=== PATIENT | female | born 1965 | race Caucasian/White ===

== ENCOUNTER 2020-07-17 12:14 | Outpatient (CLI) | payer BC, SELFPAY ==
--- NOTE | ~2020-07-17 | MR_ITS ---
EXAMINATION: MR knee RT wo con DATE: 07/17/2020 13:18 INDICATION: Anterior and medial right knee pain TECHNIQUE: Magnetic resonance imaging (MRI) of the right knee was performed without intravenous contr ast. Sequences included coronal PD-weighted FSE, coronal PD-weighted FS FSE, sagittal T2-weighted FS E, sagittal PD-weighted FS FSE and axial PD weighted fat saturated FSE. COMPARISON: None. FINDINGS: Medial compartment: Mild medial extrusion of the medial meniscus with likely full-thickness radial tear near the posterio r root. Partial-thickness chondral ulceration with deep fissuring along the anterior weightbearing me dial femoral condyle and anterior aspect of the medial tibial plateau. There is marrow edema underlyi ng the medial rim of the medial tibial plateau where there is a small subarticular trabecular fractur e line which could be either due to discrete traumatic impaction fracture or a stress fracture result ing from altered stress distribution resulting from the meniscal tear. Lateral compartment: Lateral meniscus is normal. Deep chondral ulceration at the anterior weightbearing lateral femoral co ndyle with small region filled with approximately 5 mm diameter 2 mm thick central subchondral osteop hyte. Additional deep chondral fissuring at the central aspect of the lateral tibial plateau without degenerative subchondral changes. Patellofemoral compartment: Deep chondral ulceration and fissuring involving significant portions of the medial and lateral gupta lar facets and intervening apical ridge. Additional deep chondral ulceration at the lateral trochlea and at the trochlear groove with underlying cortical irregularity, couple small central subchondral o steophytes and mild subarticular edema. Deep chondral fissuring with minimal subarticular edema at th e medial trochlea with inferior predominance. Ligaments and tendons: Anterior and posterior cruciate ligaments are normal. Mild thickening and minimal increased signal at the proximal medial collateral ligament without surrounding edema consistent with mild scarring rela irineo to chronic sprain. The fibular collateral ligament is normal. Mild distal quadriceps tendinopathy with small enthesophytes at its patellar insertion. Additional mild tendinopathy at the proximal dis lindsay insertions of the patellar tendon. The visualized medial and lateral hamstring tendons as well as the iliotibial band are normal. Fluid: Moderate-sized right knee joint effusion. Small Alejandro's cyst. No loose osteochondral bodies identifie d. Osseous/other: Small subarticular fracture line underlying the medial rim of the medial tibial plateau as detailed a estefania. No other fractures or pathologic marrow replacing process. Bone island at the posterior weightb earing medial femoral condyle. IMPRESSION: 1. Full-thickness radial tear near the posterior root of the medial meniscus. 2. Small subarticular fracture line along the medial rim of the medial tibial plateau which could be related to a discrete impaction injury or stress fracture related to altered weight/stress distributi on resulting from the meniscal tear. 3. Moderate patellofemoral, mild to moderate medial and mild lateral compartment osteoarthritis with regions of high-grade chondromalacia in all 3 compartments. Mild scarring consistent with chronic spr ain of the proximal medial collateral ligament. 4. Mild enthesopathy at the osseous insertions of the patellar and quadriceps tendons. 5. Moderate-sized right knee joint effusion with small Alejandro's cyst. Reviewed, dictated and finalized at location A. A [employer]
== END 2020-07-17 12:15 | disposition home or self-care (01) ==
PROVIDERS: PCP Internal Medicine; Visit Provider Nurse Practitioner
DX: M17.11 Unilateral primary osteoarthritis, right knee (principal); M71.21 Synovial cyst of popliteal space [Baker], right knee
CPT/HCPCS: 73721

== ENCOUNTER 2020-08-10 07:47 | Outpatient (CLI) | payer BC, SELFPAY ==
--- NOTE | 2020-08-10 07:49 | ECG_ITS ---
Measurements Intervals [place] Rate: 81 P: 61 TN: 181 QRS: 57 QRSD: 134 T: 33 QT: 377 QTc: 440 Interpretive Statements SINUS RHYTHM RIGHT BUNDLE BRANCH BLOCK BASELINE ARTIFACT- I, II, III, AVR, AVL, AVF ABNORMAL ECG Electronically Signed On 08-10-2020 8:10:03 GUIDANCE CONSULTANT by Jp Wolf D.O.
[2020-08-10 08:37] LABS: Anion Gap 8 mmol/L (8-16); Blood Urea Nitrogen 11 mg/dL (7-17); Calcium 9.2 mg/dL (8.4-10.2); Carbon Dioxide 33 mmol/L (22-30); Chloride 99 mmol/L (98-107); Estimated Glomerular Filt Rate > 60; Glucose 104 mg/dL (65-105); Potassium 3.5 mmol/L (3.4-5.0); Sodium 140 mmol/L (137-145)
== END 2020-08-10 07:48 | disposition home or self-care (01) ==
LOC: ANHSURGERY 07:49
PROVIDERS: Anesthesiology; PCP Internal Medicine; Visit Provider Orthopaedic Surgery
DX: Z01.818 Encounter for other preprocedural examination (principal); I45.10 Unspecified right bundle-branch block; I10 Essential (primary) hypertension
CPT/HCPCS: 36415; 80048; 93005

== ENCOUNTER 2020-08-14 01:49 | Outpatient (CLI) | payer BC, SELFPAY ==
[2020-08-14 18:31] LABS: SARS-CoV-2 RNA PCR Negative
== END 2020-08-14 01:50 | disposition home or self-care (01) ==
LOC: ANHCOVIDDT 01:49
PROVIDERS: PCP Internal Medicine; Visit Provider Orthopaedic Surgery
DX: Z01.812 Encounter for preprocedural laboratory examination (principal); Z20.828 Contact with and (suspected) exposure to other viral communicable diseases
CPT/HCPCS: 87635; C9803; U0003

== ENCOUNTER 2020-08-17 13:20 | Outpatient (CLI) | payer BC, SELFPAY ==
--- NOTE | 2020-08-17 13:34 | ECHO_ITS ---
Patient Info Name: Odalys Barnhart Age: 55 years : 1965 Gender: Female Ht: 69 in Wt: 325 lbs BSA: 2.76 m2 HR: 95 bpm BP: 172 / 109 mmHg Heart Rhythm: Sinus Rhythm Technical Quality: Good Exam Date: 08/17/2020 1:57 PM Exam Location: [facility] Patient Status: Outpatient Admit Date: 08/17/2020 Staff Ordering Physician: Gene Andersen DO Hog Worker: Dorian Rizvi RDCS Attending Provider: Herminia Ventura NP Referring Physician: Nathaly JIMENES; Exam Type: CA echo doppler color flow Study Info Indications I45.10 - Unspecified right bundle-branch block Complete two-dimensional, color flow and Doppler transthoracic echocardiogram is performed. History/Risk Factors RBBB; Pre-op clearance needed. Summary 1. Complete two-dimensional, color flow and Doppler transthoracic echocardiogram is performed. 2. Left ventricular chamber dimension is normal. 3. Left ventricular systolic function is normal, estimated at 60-65%. 4. There is mildly increased left ventricular wall thickness. 5. The left ventricular diastolic function is normal. 6. E/e' 9 is minimally elevated. Left Ventricle E/e' 9 is minimally elevated. Left ventricular chamber dimension is normal. Left ventricular systolic function is normal, estimated at 60-65%. There is mildly increased left ventricular wall thickness. The left ventricular diastolic function is normal. Right Ventricle Right ventricular chamber dimension is normal. Right ventricular systolic function is normal. Left Atria Left atrial chamber dimension is normal. Right Atria Right atrial chamber dimension is normal. Aortic Valve The aortic valve is trileaflet. There is no aortic valve stenosis. There is no aortic valve regurgitation. Pulmonic Valve There is no pulmonic regurgitation. Mitral Valve There is no mitral valve stenosis. There is no mitral valve regurgitation. Tricuspid Valve There is no tricuspid valve regurgitation. Pericardium/Pleural There is no pericardial effusion. Inferior Vena Cava Normal inferior vena cava with >50% collapse upon inspiration consistent with normal right atrial pressure, 5 mmHg. Aorta The aortic root size at the sinus of Valsalva is normal. Left Ventricular Outflow Tract Name Value Normal LVOT 2D LVOT Diameter 2.0 cm LVOT Doppler LVOT Peak Gradient 4 mmHg LVOT Mean Gradient 2 mmHg LVOT VTI 20 cm LVOT VTI/AV VTI Ratio 0.8 LVOT Stroke Volume 59 ml LVOT CO 5.5 l/min LVOT CI 2.0 l/min/m2 Mitral Valve Name Value Normal MV Doppler MV Decel Geary 349 cm/s2 MV PHT
== END 2020-08-17 13:21 | disposition home or self-care (01) ==
LOC: ANHIMG 13:21 → ANHCARD 13:27
PROVIDERS: PCP Internal Medicine; Visit Provider Nurse Practitioner
DX: R94.31 Abnormal electrocardiogram [ECG] [EKG] (principal); I45.10 Unspecified right bundle-branch block
CPT/HCPCS: 93306

== ENCOUNTER 2020-08-18 01:55 | Day surgery (SDC) | payer BC, SELFPAY ==
[2020-08-04 15:17] VITALS: BMI 48.8
[2020-08-18] VITALS (8 sets, daily range): BP systolic 130–167; BP diastolic 83–103; PULSE 86–99; RESP 10–20; TEMP 36.1–36.6; O2SAT 97–98; BMI 48.8
--- NOTE | 2020-08-18 06:46 | WPDANESEPPF ---
Anes - Initial Pre Proc Eval Procedure: Operation Date: 08/18/20 07:30 Proposed Procedures p Right Knee Arthroscopy, Proceed As Indicated - Elijah Okeefe MD Date/Time: 08/18/20 06:46 Surgeon: Elijah Okeefe MD Pre Op Diagnosis: right knee medial meniscus tear Patient Data Age: 55 Gender: F Height: 5 ft 9 in Weight: 150 kg Allergies Allergy/AdvReac Type Severity Reaction Status Date / Time amoxicillin Allergy Severe Hives Verified 08/04/20 15:16 Penicillins Allergy Severe Hives Verified 08/04/20 15:16 Home Medications Medication Instructions Recorded Confirmed Type albuterol sulfate 90 mcg/actuation 1 puff INHALATION Q4H PRN 05/05/20 08/04/20 History aerosol inhaler cyanocobalamin (vitamin B-12) 1,000 mcg PO DAILY 05/05/20 08/04/20 History 1,000 mcg capsule metoprolol tartrate 25 mg tablet 25 mg PO DAILY #90 tablet 05/26/20 08/04/20 Rx cyclobenzaprine 10 mg tablet 10 mg PO BID PRN #30 tablet 07/12/20 08/04/20 Rx chlorhexidine gluconate 4 % 1 applic TOPICAL ONCE #237 ml 07/28/20 08/04/20 Rx topical liquid hydrochlorothiazide 25 mg tablet 25 mg PO DAILY #90 tablet 08/13/20 08/13/20 Rx losartan 100 mg tablet 100 mg PO DAILY #90 tablet 08/13/20 08/13/20 Rx montelukast 10 mg tablet 10 mg PO DAILY #90 tablet 08/13/20 08/13/20 Rx Patient hx anesthesia problems: none Family hx anesthesia problems: none PMFSH Past Medical History Medical History Arthritis Bone tumor Removed 1977 Bronchitis Fractures Hyperglycemia Hypertension Medial meniscus tear Migraine Pneumonia Post-menopausal Vision changes Surgical History Surgical History H/O section 1990 History of ankle surgery 2014 S/P lumpectomy of breast 1999 Family History Family History Sibling Hypertension Father Hypertension Autonomic neuropathy due to disorder of immune function Sibling Hypertension Mother Patient's mother is in good health Other Cerebrovascular accident Diabetes mellitus Family history of arthritis Family history of malignant neoplasm Social History Social History Smoking status: Former smoker Second hand tobacco smoke exposure: No Smoking end date: 09/17/98 Alcohol intake: current Substance use: never Substance use type: does not use Last use: 25 YRS AGO Living arrangements: with family Spiritual care concerns: No Anes - Eval Final PreProcedure Day of Procedure 08/18/20 06:46 Patient weight: morbidly obese Heart: regular rate and rhythm Lungs: clear to auscultation Airway: Mallampati scale class II Neurological: alert and oriented Last oral intake: >/= 8 hours ASA classification: III Emergent: no Anesthesia type and monitoring: general and standard monitoring Informed Consent: The patient's anesthetic plan and its attendant risks and benefits were discussed with the patient/family/POA. Questions were solicited and answers provided to the satisfaction of the patient/family/POA.
[2020-08-18] MEDS: ACETAMINOPHEN 500 MG TABLET 1000 MG PO (07:08)
[2020-08-18] MEDS: CELECOXIB 200 MG CAPSULE PO (07:08)
[2020-08-18] MEDS: LACTATED RINGERS 1,000 ML 30 ML IV CONT ×2 (07:08→08:51)
--- NOTE | 2020-08-18 07:22 | WPDHPUPDATE1 ---
History and Physical Update Update Date/Time: 08/18/20 07:22 History and Physical has been reviewed, including an updated exam of the patient. There are NO changes in the patient's condition. Risks, benefits, and alternatives have been discussed and questions answered. Patient agrees to proceed with procedure.
--- NOTE | 2020-08-18 07:29 | SUR.PREOP ---
DISCUSSED FINDINGS IN H&P WITH DR PASCUAL. HE STATES OK TO PROCEED WITH SURGERY.
[2020-08-18] MEDS: CLINDAMYCIN 900 MG/D5W 50 ML 900 MG/50 ML PIGGYBACK 50 MG IVPB (07:36)
[2020-08-18] MEDS: BUPIVACAINE HCL 0.5% PF 30 ML VIAL INFILTRATE (08:16)
--- NOTE | 2020-08-18 08:56 | P.OP_ITS ---
Procedure Note - Detailed Date of procedure: 08/18/20 Pre-op diagnosis: right knee medial meniscus tear Post-op diagnosis: other (DJD) Procedure performed: R KNEE SCOPE WITH PARTIAL MEDIAL MENISCECTOMY AND MAJOR SYNOVECTOMY Description of procedure: PATIENT WAS TAKEN TO THE OR AND PLACED UNDER GENERAL ANESTHESIA. THE RIGHT LEG WAS PREPPED AND DRAPED STERILE. TROCARS WERE PLACED IN THE USUAL FASHION. CAMERA WAS INTRODUCED. THERE WAS GRADE 4 CHONDROMALACIA TO THE PATELLA FEMORAL JOINT. THERE WAS A LOT OF SYNOVITIS IN ALL COMPARTMENTS. THE MEDIAL COMPARTMENT SHOWED CHONDROMALACIA TO THE MED FEMORAL CONDYLE. A SHAVER WAS USED TO PREFORM A CHONDROPLASTY. THERE WAS A COMPLEX MEDIAL MENISCUS TEAR. THE TEAR EXTENDED FROM THE MENISCAL ROOT TO THE POSTERIOR HORN MAIN BODY. THE TEAR WAS RESECTED WITH A BITER AND A SHAVER DOWN TO A SMOOTH BASE. ABOUT 10% OF THE MENISCUS WAS REMOVED. THE ACL WAS INTACT. THE LATERAL MENISCUS WAS NOT TORN. THE LAT COMPARTMENT HAD SIGNIFICANT CHONDROMALACIA TOT HE LATERAL FEMORAL CONDYLE. THE PATELLO FEMORAL JOINT UNDERWENT CHONDROPLASTY. THERE WAS GRADE 4 CHONDROMALACIA IN MOST OF THE TROCHLEA AND PART OF THE PATELLA. SYNOVECTOMY WAS PREFORMED IN THE SUPERIOR MEDIAL COMPARTMENT AND IN HOFFA'S SYN OVIUM. THE PATELLA TRACKED NORMALLY WITHIN THE TROCHLEA. THE WOUNDS WERE APPROXIMATED WITH 4.0 NYLON. STERILE DRESSING WAS APPLIED. PATIENT WAS EXTUBATED. Anesthesia: GLMA Surgeon: Elijah Okeefe MD Estimated blood loss (mL): 5 Complications: No immediate complications Condition: stable Disposition: PACU
[2020-08-18] MEDS: fentaNYL CITRATE INJ (*CRX) 100 MCG/2 ML VIAL 25 MCG IV PUSH ×2 (09:18→09:24)
[2020-08-18] MEDS: oxyCODONE HCL (*CRX) 5 MG TAB IR PO (10:07)
== END 2020-08-18 10:41 | disposition home or self-care (01) ==
PROVIDERS: PCP Internal Medicine; Visit Provider Orthopaedic Surgery
PROC: (CPT 29870; principal; 2020-08-18 07:30)
DX: M23.321 Other meniscus derangements, posterior horn of medial meniscus, right knee (principal); M65.861 Other synovitis and tenosynovitis, right lower leg; M94.261 Chondromalacia, right knee; I10 Essential (primary) hypertension; Z87.891 Personal history of nicotine dependence; E66.01 Morbid (severe) obesity due to excess calories; Z68.42 Body mass index [BMI] 45.0-49.9, adult
CPT/HCPCS: 29881; 29876; A9270; J1100; J1885; J2250; J2405; J2704; J3010; J7120

== ENCOUNTER 2021-03-25 06:17 | Emergency (ER) | payer BC, SELFPAY ==
[2021-03-25] VITALS (20 sets, daily range): BP systolic 143–166; BP diastolic 84–109; PULSE 94–112; RESP 16–18; TEMP 36.3; O2SAT 94–99
--- NOTE | ~2021-03-25 | US_ITS ---
EXAMINATION: US right upper quadrant DATE: 03/25/2021 08:36 INDICATION: Abdominal pain. TECHNIQUE: Multiple grayscale and Doppler ultrasound images of the abdomen were obtained. COMPARISON: None FINDINGS: The visualized portions of the head, body, and tail of the pancreas are normal. The liver i s normal without focal lesion. No liver surface nodularity. The gallbladder is normal in size and con tains sludge. No gallstones or gallbladder wall thickening. There was no sonographic Valverde sign. The common duct is normal and measures 6 mm. IMPRESSION: 1. Gallbladder sludge. No evidence of acute cholecystitis. Reviewed, dictated and finalized at location A.
[2021-03-25 06:54] LABS: Basophils Absolute Auto 0.1 K/mm3 (0.0-0.1); Basophils Percent Auto 0.5 % (0.2-1.2); Eosinophils Absolute Auto 0.1 K/mm3 (0-0.3); Hematocrit 46.9 % (37.0-47.0); Hemoglobin 15.4 g/dL (12.0-15.0); Immature Granulocyte Absolute 0.03 K/mm3 (0.00-0.031); Immature Granulocyte Percent A 0.3 % (0-0.5); Lymphocytes Absolute Auto 1.42 K/mm3 (0.9-3.2); Lymphocytes Percent Auto 15.4 % (18.3-44.2); Mean Corpuscular HGB Conc 32.8 g/dl (32-36); Mean Corpuscular Volume 91.4 fl (80-100); Mean Platelet Volume 10.6 fl (7.4-10.4); Monocytes Absolute Auto 0.5 K/mm3 (0.1-0.6); Monocytes Percent Auto 5.1 % (2.6-8.5); Neutrophils Absolute Auto 7.2 K/mm3 (1.3-6.7); Neutrophils Percent Auto 77.7 % (45.5-73.1); Platelet Count Result 272 k/mm3 (150-375); Red Blood Count 5.13 M/mm3 (4.2-5.4); Red Cell Distribution Width 12.6 % (11.5-14.5); White Blood Count 9.2 K/mm3 (4.5-10.0)
[2021-03-25 06:57] LABS: Add Urine Microscopic? NO; Appearance Urine Clear (Clear); Bilirubin Urine Negative (Negative); Blood Urine Negative (Negative); Color Urine Yellow (Yellow); Glucose Urine UA Negative (Negative); Ketones Urine Negative (Negative); Leukocyte Esterase Ur Negative LEU/UL (Negative); Nitrate Urine Negative (Negative); Protein Urine Negative (Negative); Specific Grav Ur 1.018 (1.001-1.035); Urobilinogen Urine Negative mg/dL (<2.0)
[2021-03-25 07:01] LABS: Alanine Aminotransferase 124 U/L (4-35); Albumin Level 4.3 g/dL (3.5-5.1); Alkaline Phosphatase 99 U/L (38-126); Anion Gap 6 mmol/L (8-16); Aspartate Amino Transferase 232 U/L (14-36); Bilirubin,Total 1.3 mg/dL (0.2-1.3); Blood Urea Nitrogen 14 mg/dL (7-17); Calcium 9.7 mg/dL (8.4-10.2); Carbon Dioxide 30 mmol/L (22-30); Chloride 102 mmol/L (98-107); Estimated CRCL calculation 93 ml/min; Estimated Glomerular Filt Rate > 60; Glucose 134 mg/dL (65-105); Lipase 86 U/L (23-300); Potassium 3.9 mmol/L (3.4-5.0); Sodium 138 mmol/L (137-145)
[2021-03-25] MEDS: SODIUM CHLORIDE 0.9% IV 1,000 ML 999 ML IV CONT (08:15)
[2021-03-25] MEDS: ONDANSETRON INJ 4 MG/2 ML VIAL IV PUSH (08:15)
[2021-03-25] MEDS: MORPHINE SULFATE INJ (*CRX) 10 MG/ML AMP 4 MG IV PUSH (08:46)
--- NOTE | 2021-03-25 10:04 | ED.ABDPAIN ---
HPI - Abdominal Pain General Chief Complaint: Abdominal Pain Stated Complaint: stomach pain Time Seen by Provider: 03/25/21 06:52 History of Present Illness HPI narrative: Patient is a 55-year-old female who presents to the ER with epigastric pain. Sudden onset this evening. Radiates to her back. Associate with nausea but no vomiting. Denies fevers or chills or sweats. No chest pain or chest pressure. Has not had similar symptoms previously. Reports family history of gallbladder issues. Related Data Home Medications Medication Instructions Recorded Confirmed cyanocobalamin (vitamin B-12) 1,000 mcg PO DAILY 05/05/20 02/16/21 1,000 mcg capsule Allergies Allergy/AdvReac Type Severity Reaction Status Date / Time amoxicillin Allergy Severe Hives Verified 03/25/21 06:28 Penicillins Allergy Severe Hives Verified 03/25/21 06:28 Review of Systems Review of Systems: All systems reviewed & are unremarkable except as noted in HPI and below Constitutional: Constitutional: Denies chills, Denies fever(s) and Denies weakness ENT: Denies nasal congestion and Denies sore throat Cardiovascular: Cardiovascular: Denies chest pain and Denies radiating jaw, neck or arm pain Gastrointestinal: Gastrointestinal: Reports abdominal pain, Reports bloating, Denies diarrhea, Reports nausea and Denies vomiting Genitourinary: Genitourinary: Denies nocturia and Denies dysuria [facility] Past Medical History Medical History (Updated 03/25/21 @ 10:07 by Cain Mir MD) Arthritis Bone tumor Removed 1977 Bronchitis Fractures Hyperglycemia Hypertension Medial meniscus tear Migraine Pneumonia Post-menopausal Tear meniscus knee Vision changes Surgical History Surgical History H/O section 1990 History of ankle surgery 2015 S/P lumpectomy of breast 1999 Family History Family History Sibling Hypertension Father Hypertension Autonomic neuropathy due to disorder of immune function Sibling Hypertension Mother Patient's mother is in good health Other Cerebrovascular accident Diabetes mellitus Family history of arthritis Family history of malignant neoplasm Social History Social History Smoking status: Never smoker Second hand tobacco smoke exposure: No Smoking end date: 09/17/98 Alcohol intake: current Alcohol use details: 0-1 per week Substance use: never Substance use type: does not use Last use: 25 YRS AGO Spiritual care concerns: No Exam Narrative: Exam Narrative: GENERAL: Well-appearing, well-nourished, and in no acute distress. HEAD: Normocephalic, atraumatic. ENT: Mucous membranes moist. CHEST: Clear to auscultation. No respiratory distress. HEART: Regular rate and rhythm. Normal peripheral pulses. ABDOMEN: Soft, tender to palpation epigastrium right upper quadrant without guarding, nondistended. EXTREMITIES: Normal range of motion. No edema. SKIN: Warm, dry, no rash. NEURO: Alert and oriented x3. PSYCH: Normal mood and affect. Course Course Emergency Course: Patient informed of results. Discussed treatment plan and patient verbalized understanding. Vital Signs Vital signs: Vital Signs Temperature 97.4 F L 03/25/21 06:22 Pulse Rate 112 H 03/25/21 06:22 Respiratory Rate 18 03/25/21 06:22 Blood Pressure 161/109 H 03/25/21 06:22 Pulse Oximetry 99 03/25/21 06:22 Temperature 97.4 F L 03/25/21 06:22 Pulse Rate 112 H 03/25/21 06:22 Respiratory Rate 18 03/25/21 06:22 Blood Pressure 161/109 H 03/25/21 06:22 Pulse Oximetry 99 03/25/21 06:22 MDM - Abdominal Pain Lab Data Result diagrams: 03/25/21 06:32 03/25/21 06:32 Labs: Lab Results 03/25/21 03/25/21 03/25/21 Range/Units 06:32 06:32 06:41 WBC 9.2 (4.5-10.0) K/mm3 RB
== END 2021-03-25 10:40 | disposition home or self-care (01) ==
PROVIDERS: Emergency Medicine; Emergency Provider Emergency Medicine; PCP Internal Medicine
DX: K82.8 Other specified diseases of gallbladder (principal); M19.90 Unspecified osteoarthritis, unspecified site; I10 Essential (primary) hypertension; Z87.01 Personal history of pneumonia (recurrent)
CPT/HCPCS: 36415; 76705; 80053; 81003; 83690; 85025; 96361; 96374; 96375; 99284; J2270; J2405; J7030

== ENCOUNTER → 2021-04-11 08:21 | Outpatient (CLI) | payer BC, SELFPAY ==
--- NOTE | ~2021-04-11 | XR_ITS ---
EXAMINATION: XR hip LT min 2V EXAM DATE: 04/11/2021 08:37 INDICATION: M25.559 - Pain in unspecified hip. General left hip pain radiates down leg, x 3-4 yrs no injury, limited rom pt unable to fully extend left leg, popping on and off. TECHNIQUE: Left hip frontal, 'frog leg' projections for interpretation. There is no prior study for comparison. FINDINGS: Smooth left hip femoral head contour, no radiographic evidence of avascular necrosis. The re is large amount of bony productive change around the acetabulum, moderate loss of the left hip remberto nt space superiorly. Overall moderate to severe primary osteoarthritis. There are no acute fractures or dislocations identified. There is no subcutaneous gas. The soft tissue is unremarkable. There are no radiopaque foreign bodies. IMPRESSION: Moderate to severe left hip osteoarthritis. . Reviewed, dictated and finalized at location B.
== END ==
PROVIDERS: PCP Internal Medicine; Visit Provider Clinical Nurse Specialist
DX: M25.559 Pain in unspecified hip (principal); M16.12 Unilateral primary osteoarthritis, left hip
CPT/HCPCS: 73502

== ENCOUNTER 2021-04-27 08:30 | Outpatient (CLI) | payer BC, SELFPAY ==
[2021-04-27 09:09] LABS: Alanine Aminotransferase 28 U/L (4-35); Albumin Level 3.9 g/dL (3.5-5.1); Alkaline Phosphatase 93 U/L (38-126); Amylase 53 U/L (30-110); Aspartate Amino Transferase 23 U/L (14-36); Bilirubin,Total 0.3 mg/dL (0.2-1.3)
== END 2021-04-27 08:31 | disposition home or self-care (01) ==
PROVIDERS: PCP Internal Medicine; Visit Provider Surgery
DX: Z01.812 Encounter for preprocedural laboratory examination (principal); K82.8 Other specified diseases of gallbladder
CPT/HCPCS: 36415; 80076; 82150; 86850; 86900; 86901

== ENCOUNTER → 2021-04-29 03:48 | Outpatient (CLI) | payer BC, SELFPAY ==
[2021-04-30 01:37] LABS: SARS-CoV-2 RNA PCR Negative
== END ==
PROVIDERS: PCP Internal Medicine; Visit Provider Surgery
DX: Z01.812 Encounter for preprocedural laboratory examination (principal); Z20.822 Contact with and (suspected) exposure to COVID-19
CPT/HCPCS: C9803; U0003; U0005

== ENCOUNTER 2021-05-02 02:53 | Day surgery (SDC) | payer BC, SELFPAY ==
[2021-04-25 15:26] VITALS: BMI 43.0
[2021-05-02] VITALS (9 sets, daily range): BP systolic 151–166; BP diastolic 77–95; PULSE 80–103; RESP 14–20; TEMP 36.2–36.4; O2SAT 96–100
--- NOTE | ~2021-05-02 | XR_ITS ---
EXAMINATION: XR cholangiogram surg 1st inj DATE: 05/02/2021 15:47 INDICATION: Abnormal liver function tests. Gallbladder sludge. TECHNIQUE: 80 fluoroscopic images of the right upper quadrant were obtained during intraoperative cho langiography performed by the surgeon. I was not present in the operating room. Fluoroscopy exposure time was 13. COMPARISON: Ultrasound 03/25/2021 FINDINGS: There is a catheter in the cystic duct. There is opacification of the biliary tree, which i s normal. Contrast passes to the duodenum. IMPRESSION: 1. Normal intraoperative cholangiogram. Reviewed, dictated and finalized at location B.
--- NOTE | 2021-05-02 08:20 | WPDANESEPPF ---
Anes - Initial Pre Proc Eval Procedure: Operation Date: 05/02/21 13:00 Proposed Procedures p Laparoscopic Cholecystectomy with Intraoperative Cholangiogram, Possible Open - Jorge Luis Rocha DO Date/Time: 05/02/21 08:20 Surgeon: Jorge Luis Rocha DO Pre Op Diagnosis: gall bladder sludge Patient Data Age: 55 Gender: F Height: 1.75 m Weight: 132 kg Allergies Allergy/AdvReac Type Severity Reaction Status Date / Time amoxicillin Allergy Severe Hives Verified 04/25/21 15:04 Penicillins Allergy Severe Hives Verified 04/25/21 15:04 Home Medications Medication Instructions Recorded Confirmed Type cyanocobalamin (vitamin B-12) 500 mcg PO DAILY 05/05/20 04/25/21 History 1,000 mcg capsule cyclobenzaprine 10 mg tablet 10 mg PO BID PRN #30 tablet 07/12/20 04/25/21 Rx metoprolol tartrate 25 mg tablet 25 mg PO DAILY #90 tablet 10/04/20 04/25/21 Rx albuterol sulfate 90 mcg/actuation 1 puff INHALATION Q4H PRN #8.5 g 11/15/20 04/25/21 Rx aerosol inhaler hydrochlorothiazide 25 mg tablet 25 mg PO DAILY #90 tablet 02/16/21 04/25/21 Rx losartan 100 mg tablet 100 mg PO DAILY #90 tablet 02/16/21 04/25/21 Rx aspirin [Adult Low Dose Aspirin] 81 mg PO DAILY 04/25/21 04/25/21 History cholecalciferol (vitamin D3) 125 mcg PO DAILY 04/25/21 04/25/21 History zinc 50 mg PO DAILY 04/25/21 04/25/21 History Patient hx anesthesia problems: none Family hx anesthesia problems: none PMFSH Past Medical History Medical History (Updated 05/02/21 @ 08:23 by Chester Carlos MD) Arthritis Bone tumor Removed 1977 Bronchitis Elevated LFTs Fractures Gallbladder attack Hyperglycemia Hypertension Medial meniscus tear Migraine Morbid obesity with BMI of 40.0-44.9, adult Pneumonia Post-menopausal Sludge in gallbladder Tear meniscus knee Vision changes Surgical History Surgical History H/O section 1990 History of ankle surgery 2014 History of knee surgery S/P lumpectomy of breast 1999 left breast S/P removal of right ovary Family History Family History Sibling Hypertension Father Hypertension Autonomic neuropathy due to disorder of immune function Sibling Hypertension Diabetes mellitus Mother Patient's mother is in good health Grandparent Malignant neoplasm of prostate Grandparent Cerebrovascular accident Uterine cancer Other Family history of arthritis Family history of malignant neoplasm Social History Social History Smoking packs per day: 1 Smoking cigarettes per day: 20.0 Years smoked: 5 Smoking pack-years: 5.00 Smoking status: Former smoker Tobacco type: cigarettes Smoking end date: 09/17/98 Alcohol intake: current Alcohol use details: 0-1 per week Substance use: never Substance use type: does not use Last use: 25 YRS AGO Living arrangements: with family 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 Questions were solicited and answers provided to the satisfaction of the patient/family/POA.
[2021-05-02] MEDS: ACETAMINOPHEN 500 MG TABLET 1000 MG PO (12:14)
[2021-05-02] MEDS: KETOROLAC 15 MG/ML VIAL (*BKC) IV PUSH (12:15)
[2021-05-02] MEDS: LACTATED RINGERS 1,000 ML 30 ML IV CONT ×2 (12:35→15:46)
--- NOTE | 2021-05-02 14:14 | WPDHPUPDATE1 ---
History and Physical Update Update Date/Time: 05/02/21 14:14 History and Physical has been reviewed, including an updated exam of the patient. There are NO changes in the patient's condition. Risks, benefits, and alternatives have been discussed and questions answered. Patient agrees to proceed with procedure.
--- NOTE | 2021-05-02 14:15 | PM.IMHP ---
H&P: HPI History of Present Illness Date/Time: 05/02/21 14:15 Chief Complaint: Gallbladder sludge Narrative: 55 yo woman presents for laparsocpic cholecystectomy. She denies any changes since last seen in office. Review of Systems Review of Systems: All systems reviewed & are unremarkable except as noted in HPI and below Constitutional: Constitutional: Denies chills, Denies fever(s), Denies headache(s) and Denies weight loss Eyes: Eyes: Denies change in vision ENT: Denies dizziness, Denies headache(s), Denies neck mass and Denies throat swelling Cardiovascular: Cardiovascular: Denies chest pain, Denies lightheadedness and Denies dyspnea Respiratory: Respiratory: Denies cough, Denies dyspnea and Denies wheezing Gastrointestinal: Gastrointestinal: Denies abdominal pain, Denies change in bowel habits, Denies nausea and Denies vomiting Genitourinary: Genitourinary: Denies hematuria and Denies dysuria Musculoskeletal: Musculoskeletal: Reports as per HPI Integumentary/Breasts: Skin/Breast: Reports as per HPI Neurologic: Denies dizziness and Denies headache(s) Allergic/Immunologic: Allergic/Immunologic: Denies throat swelling and Denies wheezing [facility], LAT[facility] Past Medical History Medical History (Updated 05/02/21 @ 08:23 by Chester Carlos MD) Arthritis Bone tumor Removed 1977 Bronchitis Elevated LFTs Fractures Gallbladder attack Hyperglycemia Hypertension Medial meniscus tear Migraine Morbid obesity with BMI of 40.0-44.9, adult Pneumonia Post-menopausal Sludge in gallbladder Tear meniscus knee Vision changes Surgical History Surgical History H/O section 1990 History of ankle surgery 2014 History of knee surgery S/P lumpectomy of breast 1999 left breast S/P removal of right ovary Family History Family History Sibling Hypertension Father Hypertension Autonomic neuropathy due to disorder of immune function Sibling Hypertension Diabetes mellitus Mother Patient's mother is in good health Grandparent Malignant neoplasm of prostate Grandparent Cerebrovascular accident Uterine cancer Other Family history of arthritis Family history of malignant neoplasm Social History Social History Smoking packs per day: 1 Smoking cigarettes per day: 20.0 Years smoked: 5 Smoking pack-years: 5.00 Smoking status: Former smoker Tobacco type: cigarettes Smoking end date: 09/17/98 Alcohol intake: current Alcohol use details: 0-1 per week Substance use: never Substance use type: does not use Last use: 25 YRS AGO Living arrangements: with family 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 Spiritual care concerns: No Meds Home Medications and Allergies Home Medications Medication Instructions Recorded Confirmed Type cyanocobalamin (vitamin B-12) 500 mcg PO DAILY 05/05/20 04/25/21 History 1,000 mcg capsule cyclobenzaprine 10 mg tablet 10 mg PO BID PRN #30 tablet 07/12/20 04/25/21 Rx metoprolol tartrate 25 mg tablet 25 mg PO DAILY #90 tablet 10/04/20 05/02/21 Rx albuterol sulfate 90 mcg/actuation 1 puff INHALATION Q4H PRN #8.5 g 11/15/20 04/25/21 Rx aerosol inhaler hydrochlorothiazide 25 mg tablet 25 mg PO DAILY #90 tablet 02/16/21 04/25/21 Rx losartan 100 mg tablet 100 mg PO DAILY #90 tablet 02/16/21 05/02/21 Rx aspirin [Adult Low Dose Aspirin] 81 mg PO DAILY 04/25/21 05/02/21 History cholecalciferol (vitamin D3) 125 mcg PO DAILY 04/25/21 04/25/21 History zinc 50 mg PO DAILY 04/25/21 04/25/21 History Allergies Allergy/AdvReac Type Severity Reaction Status Date / Time amoxicillin Allergy Severe Hives Verified 05/02/21 12:32 Penicillins Allergy Severe Hives Verified 05/02/21 12:32 Vital Signs Vital Signs - 24 hr 05/02/21 12:35 Temperature 36.2 C L Pulse R
[2021-05-02] MEDS: ceFAZolin 3 GM/D5W 100 ML 100 ML IVPB (15:07)
[2021-05-02] MEDS: BUPIVACAINE/EPINEPHRINE 0.5% 30 ML VIAL INFILTRATE (15:11)
--- NOTE | 2021-05-02 15:48 | W.PM.PROC2 ---
Procedure Note - Detailed Date of Procedure 05/02/21 Pre-op Diagnosis 1. Gallbladder sludge 2. Elevated liver enzymes Post-op Diagnosis same Procedure Performed Laparoscopic Cholecystectomy with intraoperative cholangiogram Surgeon Jorge Luis Rocha, DO Anesthesia general and local (0.5% bupivacaine with epinephrine local) Indications This is a 55-year-old woman who had previously presented to the emergency department on 03/25/2021 with epigastric abdominal pain. She was also noting dark urine that day that she presented. She was noted to have elevated liver enzymes. Gallbladder ultrasound showed evidence of gallbladder sludge but no signs of acute cholecystitis. Common bile duct measured 6 mm. She was able to be discharged home and she followed up in the office. Her dark urine resolved and her pain improved. Follow-up liver enzymes preoperatively showed normalization of her liver enzymes. Discussions were made with the patient about treatment options and decision was made to proceed with laparoscopic cholecystectomy with intraoperative cholangiogram, possible open. Findings Laparoscopic cholecystectomy with intraoperative cholangiogram was performed. The gallbladder was slightly tense but did not appear to be acutely inflamed. The gallbladder was decompressed using an aspirating needle. The cystic duct appeared normal in size. There did appear to be a couple tiny fragments of stone within the gallbladder. The intraoperative cholangiogram was obtained using Omnipaque contrast and there was no evidence of filling defects or obstruction. The gallbladder was removed and sent to the lab for pathology. Description of Procedure Procedure as well as risks, benefits, and alternatives were discussed with patient. Written consent was obtained and placed in chart prior to procedure. The patient was brought back to surgical suite. Patient was placed in supine position on operating table. Time-out was done to confirm patient and procedure. Patient was then intubated by the anesthesia department. Abdomen was prepped and draped in sterile fashion using chlorhexidine prep. 0.5% bupivacaine with epinephrine was infiltrated at each site of incision. A 5 millimeter incision was made near the umbilicus, and a 5 millimeter Optiview trocar was advanced through the abdominal layers under direct visualization. Once inside the abdominal cavity, carbon dioxide was insufflated to create a pneumoperitoneum. The camera was inserted and the abdomen was inspected. No immediate abnormalities were identified. The patient was placed in reverse Trendelenburg position and rotated slightly to the left. An 11 millimeter incision was made in the subxiphoid region, and an 11 millimeter trocar was inserted under direct visualization. Two 5 millimeter incisions were made in the right upper quadrant, and two 5 millimeter trocars were inserted under direct visualization. The gallbladder was identified and grasped at the fundus and retracted superiorly. It was then grasped at the infundibulum retracted laterally. Careful dissection around the neck of the gallbladder was performed using blunt dissection with a [place] grasper and hook electrocautery. The cystic duct was identified, and a window was created behind it. The cystic artery was also identified and a window was created behind it. The critical view of safety was identified, visualizing the cystic duct running directly into the neck of the gallbladder, and the cystic artery running directly into the wall of the gallbladder. A 5 millimeter clip photographic process attendant was then used to place 2 clips proximally and 1 clip distally on the cystic artery. It was then transected using endoscopic scissors. The Haskins clamp was then placed across the neck of the gallbladder and the cholangiocatheter was then advanced into the distal neck of the gallbladder. Bile was able to be aspirated and the catheter flushed with saline with ease. The patient was
[2021-05-02] MEDS: ONDANSETRON INJ 4 MG/2 ML VIAL IV PUSH (17:33)
== END 2021-05-02 18:05 | disposition home or self-care (01) ==
PROVIDERS: PCP Internal Medicine; Visit Provider Surgery
PROC: 0FT44ZZ Resection of Gallbladder, Percutaneous Endoscopic Approach (ICD-10-PCS; CPT 47562; principal; 2021-05-02 13:00)
DX: K80.10 Calculus of gallbladder with chronic cholecystitis without obstruction (principal); M19.90 Unspecified osteoarthritis, unspecified site; I10 Essential (primary) hypertension; R73.9 Hyperglycemia, unspecified; Z87.891 Personal history of nicotine dependence; Z79.82 Long term (current) use of aspirin; Z79.51 Long term (current) use of inhaled steroids; R94.5 Abnormal results of liver function studies; E66.01 Morbid (severe) obesity due to excess calories; Z68.41 Body mass index [BMI] 40.0-44.9, adult
CPT/HCPCS: 47563; 74300; 88304; A9270; J0690; J1100; J1170; J1885; J2250; J2405; J2704; J2710; J3010; J7120; Q9966

== ENCOUNTER → 2021-07-12 16:11 | Outpatient (CLI) | payer BC, SELFPAY ==
--- NOTE | ~2021-07-12 | MM_ITS ---
EXAMINATION: MM screening rod BI w veena HISTORY: Screening mammogram TECHNIQUE: Craniocaudal and mediolateral oblique 3-D tomosynthesis images were obtained and synthetic 2-D images were generated. CAD analysis was submitted and interpreted. COMPARISON: No prior mammogram is available for comparison at this institution. BREAST PARENCHYMAL COMPOSITION: There are scattered areas of fibroglandular density. FINDINGS: There is no evidence of suspicious mass, calcification, or architectural distortion to sugg est malignancy in either breast. There has been no suspicious interval change. IMPRESSION: 1. No mammographic evidence of malignancy. 2. Recommend routine screening mammography in one year. BI-RADS Category 1: Negative Reviewed, dictated and finalized at location A.
== END ==
PROVIDERS: PCP Internal Medicine; Visit Provider Obstetrics & Gynecology
DX: Z12.31 Encounter for screening mammogram for malignant neoplasm of breast (principal)
CPT/HCPCS: 77063; 77067

== ENCOUNTER 2021-08-13 18:26 | Emergency (ER) | payer BC, SELFPAY ==
[2021-08-13] VITALS (8 sets, daily range): BP systolic 123–150; BP diastolic 83–101; PULSE 68–119; RESP 16–20; TEMP 36.6; O2SAT 93–97
--- NOTE | 2021-08-13 19:11 | ED.GENADULT ---
HPI - General Adult General Chief complaint: Headache Stated complaint: headache for 4 days Time Seen by Provider: 08/13/21 19:04 History of Present Illness HPI narrative: Patient 56-year-old female presents the emergency department with chief complaint of headache body aches and sinus pressure. Patient reports that several days ago she started having generalized chills started having body aches and then had severe nasal congestion reports she is try to use a [place] pot without relief reports that she has had several coworkers at work that have developed sinus infections. The patient reports she is unvaccinated for COVID-19 and has not previously had COVID-19. Related Data Home Medications Medication Instructions Recorded Confirmed cyanocobalamin (vitamin B-12) 500 mcg PO DAILY 05/05/20 05/26/21 1,000 mcg capsule aspirin 81 mg PO DAILY 04/25/21 05/26/21 cholecalciferol (vitamin D3) 125 mcg PO DAILY 04/25/21 05/26/21 zinc 50 mg PO DAILY 04/25/21 05/26/21 Allergies Allergy/AdvReac Type Severity Reaction Status Date / Time amoxicillin Allergy Severe Hives Verified 08/13/21 18:26 Penicillins Allergy Severe Hives Verified 08/13/21 18:26 Review of Systems Review of Systems: A 10 system review of systems was completed on the patient and is negative except for what is stated in the HPI. Nursing and ancillary documentation was reviewed. [facility] Past Medical History Medical History Arthritis Bone tumor Removed 1977 Bronchitis Elevated LFTs Fractures Gallbladder attack Hyperglycemia Hypertension Medial meniscus tear Migraine Morbid obesity with BMI of 40.0-44.9, adult Pneumonia Post-menopausal Sludge in gallbladder Tear meniscus knee Vision changes Surgical History Surgical History H/O section 1990 History of ankle surgery 2014 History of knee surgery Hx laparoscopic cholecystectomy 05/02/21 Laparoscopic Cholecystectomy with intraoperative cholangiogram S/P lumpectomy of breast 1999 left breast S/P removal of right ovary Family History Family History Sibling Hypertension Father Hypertension Autonomic neuropathy due to disorder of immune function Sibling Hypertension Diabetes mellitus Mother Patient's mother is in good health Grandparent Malignant neoplasm of prostate Grandparent Cerebrovascular accident Uterine cancer Other Family history of arthritis Family history of malignant neoplasm Social History Social History Smoking packs per day: 1 Smoking cigarettes per day: 20.0 Years smoked: 5 Smoking pack-years: 5.00 Smoking status: Former smoker Tobacco type: cigarettes Smoking end date: 09/17/98 Alcohol intake: current Alcohol use details: 0-1 per week Substance use: never Substance use type: does not use Last use: 25 YRS AGO 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 HEAD: Normocephalic, atraumatic. EYES: PERRLA and EOMI. ENT: Nares clear, no rhinorrhea or epistaxis. Mucous membranes moist. NECK: Supple. CHEST: Clear to auscultation. No respiratory distress. HEART: Regular rate and rhythm. No murmur heard. Normal peripheral pulses. ABDOMEN: Soft, nontender, nondistended, normal active bowel sounds. EXTREMITIES: Normal range of motion. No edema. SKIN: Warm, dry, no rash. NEURO: No focal deficits. Alert and oriented x3. PSYCH: Normal mood and affect. Course Vital Signs Vital signs: Vital Signs Temperature 36.6 C 08/13/21 18:29 Pulse Rate 119 H 08/13/21 18:29 Respiratory Rate 16 08/13/21 18:29 Blood Pressure 150/100 H 08/13/21 18:29 Pulse O
[2021-08-13] MEDS: SODIUM CHLORIDE 0.9% IV 1,000 ML 999 ML IV CONT (19:29)
[2021-08-13] MEDS: PROCHLORPERAZINE EDISYLATE 10 MG/2 ML VIAL IV PUSH (19:30)
[2021-08-13] MEDS: diphenhydrAMINE HCl INJ 50 MG/ML VIAL IV PUSH (19:30)
[2021-08-13] MEDS: KETOROLAC 30 MG/ML VIAL (*BKC) IV PUSH (19:30)
[2021-08-16 20:04] LABS: SARS-CoV-2 RNA PCR Positive
== END 2021-08-13 20:05 | disposition home or self-care (01) ==
PROVIDERS: Emergency Provider Emergency Medicine; PCP Internal Medicine
DX: U07.1 COVID-19 (principal); J32.9 Chronic sinusitis, unspecified; B96.89 Other specified bacterial agents as the cause of diseases classified elsewhere; R51.9 Headache, unspecified; M19.90 Unspecified osteoarthritis, unspecified site; I10 Essential (primary) hypertension; E66.01 Morbid (severe) obesity due to excess calories; Z68.41 Body mass index [BMI] 40.0-44.9, adult; Z87.01 Personal history of pneumonia (recurrent); Z87.891 Personal history of nicotine dependence; Z79.82 Long term (current) use of aspirin
CPT/HCPCS: 96361; 96374; 96375; 99284; C9803; J0780; J1200; J1885; J7030; U0003; U0005

== ENCOUNTER 2021-11-17 07:46 | Outpatient (CLI) | payer BC, SELFPAY ==
--- NOTE | 2021-11-17 08:50 | ECG_ITS ---
Measurements Intervals [place] Rate: 58 P: 44 [place]: 195 QRS: 30 QRSD: 133 T: 23 QT: 425 QTc: 418 Interpretive Statements SINUS BRADYCARDIA RIGHT BUNDLE BRANCH BLOCK [120+ ms QRS DURATION, UPRIGHT V1, 40+ ms S IN I/aVL/V4/V5/V6] ABNORMAL ECG Electronically Signed On 11-17-2021 10:00:00 STEEL FABRICATOR by Asad Prado M.D.
[2021-11-17 09:26] LABS: Urine Cotinine NEGATIVE
[2021-11-17 09:31] LABS: Add Urine Microscopic? NO; Appearance Urine Clear (Clear); Bilirubin Urine Negative (Negative); Blood Urine Negative (Negative); Color Urine Straw (Yellow); Glucose Urine UA Negative (Negative); Ketones Urine Negative (Negative); Leukocyte Esterase Ur Negative LEU/UL (Negative); Nitrate Urine Negative (Negative); Protein Urine Negative (Negative); Specific Grav Ur 1.008 (1.001-1.035); Urobilinogen Urine Negative mg/dL (<2.0)
[2021-11-17 09:34] LABS: Prothrombin Time 12.4 Seconds (11.1-14.7)
[2021-11-17 09:35] LABS: Partial Thromboplastin Time 26.8 SECONDS (22.3-36.8)
[2021-11-17 10:29] LABS: Estimated Glomerular Filt Rate > 60
== END 2021-11-17 07:47 | disposition home or self-care (01) ==
LOC: ANHSURGERY 07:51
PROVIDERS: PCP Internal Medicine; Visit Provider Orthopaedic Surgery
DX: M16.12 Unilateral primary osteoarthritis, left hip (principal); Z01.818 Encounter for other preprocedural examination; I45.10 Unspecified right bundle-branch block
CPT/HCPCS: 80307; 81003; 82565; 85610; 85730; 86850; 86900; 86901; 87081; 93005

== ENCOUNTER → 2021-11-26 00:20 | Outpatient (CLI) | payer BC, SELFPAY ==
[2021-11-26 14:11] LABS: SARS-CoV-2 RNA PCR Negative
== END ==
PROVIDERS: PCP Internal Medicine; Visit Provider Orthopaedic Surgery
DX: Z01.812 Encounter for preprocedural laboratory examination (principal); Z20.822 Contact with and (suspected) exposure to COVID-19
CPT/HCPCS: C9803; U0003; U0005

== ENCOUNTER 2021-11-29 01:24 | Day surgery (SDC) | payer BC, SELFPAY ==
[2021-11-17 07:56] VITALS: BMI 38.7
--- NOTE | 2021-11-17 08:16 | PC.NURSE ---
Report to the Outpatient Waiting Room, entrance under the green pavilion located off [facility], at time __1000 on date __11/29/21 . OR Time: __1200 . - You and your visitor will be asked a series of questions to screen for COVID 19 for your protection. - A mask is required within the hospital. Preoperative COVID Testing Requirements: No COVID Test needed if: (proof is required; if not received patient will have Rapid Test prior to entry) - Patient has received COVID Vaccine at least 14 days prior to procedure date or - Patient has positive COVID test result within last 90 days of surgery date. COVID TESTING 11/26/21 0900 COVID Test needed if above criteria is not met If not COVID vaccinated a COVID test must be conducted within 72 hours of surgery and patient is asked to isolate self from time of testing until procedure. You will go to the [facility] for your COVID testing. The [facility] site is located at the corner of [address] [facility]. You will only be called if COVID results are positive and your surgeon may reschedule your elective surgery date. Patients may have clear liquids (water, carbonated beverages, clear teas, apple juice) until 3 hours prior to surgery with a maximum of 20 ounces. - No food from midnight until time of surgery Take the following medications with a SIP of water the morning of surgery: ____INHALER IF NEEDED,METOPROLOL Medications to discontinue per physician ____ASPIRIN,NAPROXEN,IBUPROFEN PER DR PASCUAL, ALL VITAMINS AND SUPPLEMENTS 3 DAYS PRE OP Date to take last dose__11/25/21 Please no make-up, nail korean, hairspray, perfume, deodorant, or body powder the day of surgery. No jewelry (including any body piercings) or valuables the day of surgery, leave them at home. Please take a shower or bath the night before, or the morning of, surgery with an antibacterial soap. Wear comfortable, loose fitting clothing. Children are encouraged to wear pajamas. - Jewelry must be removed prior to entering the operating room. Rings and piercings that are not removed may be cut off. - The hospital will not accept responsibility for valuables. - Please leave all valuables, including medications, at home the day of surgery. If you are going home after surgery, a licensed food service driver must drive you home. - NO public transportation without another adult. - We recommend that an adult stay with you for 24 hours following discharge. - We also recommend that you do not drive, make important decision, drink alcoholic beverages, or take any drugs that were not prescribed by your health care provider for at least 24 hours after your discharge One visitor will be allowed to accompany the patient into the hospital. Patients visitor will be instructed to remain with patient at all times or leave the building. We will allow the visitor to come back to the postoperative area when patient is ready. Follow any additional instructions given to you from your surgeon. VERBAL /WRITENinstructions given to PATIENT and asked if any additional questions and then verbalized understanding. Patient advised to call surgeon office or pre surgery nurse liaison [phone] if any additional questions.
[2021-11-17 08:44] VITALS: BP 131/85; PULSE 62; RESP 18; TEMP 36.7; O2SAT 100
[2021-11-29] VITALS (11 sets, daily range): BP systolic 122–138; BP diastolic 67–83; PULSE 61–97; RESP 12–20; TEMP 36.1–36.6; O2SAT 98–100
--- NOTE | ~2021-11-29 | XR_ITS ---
EXAMINATION: XR hip LT 1V DATE: 11/29/2021 16:00 INDICATION: Total left hip arthroplasty. TECHNIQUE: A single view of left hip was obtained. COMPARISON: Left hip radiographs 05/26/2021 FINDINGS: There is a total left hip arthroplasty in near-anatomic alignment. No fracture. IMPRESSION: 1. Total left hip arthroplasty in anatomic alignment. Reviewed, dictated and finalized at location A.
--- NOTE | 2021-11-29 09:57 | WPDANESEPPF ---
Anes - Initial Pre Proc Eval Procedure: Operation Date: 11/29/21 12:00 Proposed Procedures p Left Total Hip Arthroplasty - Elijah Okeefe MD Date/Time: 11/29/21 09:57 Surgeon: Elijah Okeefe MD Pre Op Diagnosis: left hip DJD Patient Data Age: 56 Gender: F Height: 1.75 m Weight: 119 kg Last Vital Signs Temp 36.7 C 11/17/21 08:44 Pulse 62 11/17/21 08:44 Resp 18 11/17/21 08:44 BP 131/85 11/17/21 08:44 Pulse Ox 100 11/17/21 08:44 Allergies Allergy/AdvReac Type Severity Reaction Status Date / Time amoxicillin Allergy Severe Hives Verified 11/29/21 10:17 Penicillins Allergy Severe Hives Verified 11/29/21 10:17 tramadol AdvReac Nausea Verified 11/29/21 10:17 Home Medications Medication Instructions Recorded Confirmed Type cyanocobalamin (vitamin B-12) 1,000 mcg PO DAILY 05/05/20 11/29/21 History 1,000 mcg capsule aspirin 81 mg PO DAILY 04/25/21 11/29/21 History cholecalciferol (vitamin D3) 1,000 unit PO DAILY 04/25/21 11/29/21 History zinc 50 mg PO DAILY 04/25/21 11/29/21 History cyclobenzaprine 10 mg tablet 10 mg PO BID PRN #30 tablet 10/17/21 11/29/21 Rx hydrochlorothiazide 25 mg tablet 25 mg PO DAILY #90 tablet 10/17/21 11/29/21 Rx losartan 100 mg tablet 100 mg PO DAILY #90 tablet 10/17/21 11/29/21 Rx metoprolol tartrate 25 mg tablet 25 mg PO DAILY #90 tablet 10/17/21 11/29/21 Rx albuterol sulfate 90 mcg/actuation 1 puff INHALATION Q4H PRN #8.5 g 11/15/21 11/29/21 Rx aerosol inhaler elderberry fruit [Elderberry] 200 mg PO DAILY 11/17/21 11/29/21 History ibuprofen 600 mg PO Q6H PRN 11/17/21 11/29/21 History multivitamin [Multi-Vitamin] 1 tablet PO DAILY 11/17/21 11/29/21 History naproxen 500 mg PO BID PRN 11/17/21 11/29/21 History Patient hx anesthesia problems: none Family hx anesthesia problems: none Results Review: All pre-operative results and documents have been reviewed as part of the pre-operative evaluation. [facility] Past Medical History Medical History (Updated 11/29/21 @ 09:58 by Ishmael Echols DO) Arthritis Asthma Bone tumor Removed 1977 Bronchitis Elevated LFTs Fractures Gallbladder attack Hyperglycemia Hypertension Medial meniscus tear Migraine Morbid obesity with BMI of 40.0-44.9, adult Pneumonia Post-menopausal Sludge in gallbladder Tear meniscus knee Vision changes Vitamin D deficiency Surgical History Surgical History (Updated 11/29/21 @ 09:58 by Ishmael Echols DO) H/O section 1990 History of ankle surgery 2014 History of knee surgery History of tubal ligation Hx laparoscopic cholecystectomy 05/02/21 Laparoscopic Cholecystectomy with intraoperative cholangiogram S/P lumpectomy of breast 1999 left breast S/P removal of right ovary Family History Family History Sibling Hypertension Father Hypertension Autonomic neuropathy due to disorder of immune function Sibling Hypertension Diabetes mellitus Mother Patient's mother is in good health Grandparent Malignant neoplasm of prostate Grandparent Cerebrovascular accident Uterine cancer Other Family history of arthritis Family history of malignant neoplasm Social History Social History Smoking packs per day: 1 Smoking cigarettes per day: 20.0 Years smoked: 5 Smoking pack-years: 5.00 Smoking status: Never smoker Tobacco type: cigarettes Smoking end date: 09/17/98 Additional smoking assessment comments: DENIES ANY FORM OF TOBACCO USE Alcohol intake: current Alcohol use details: 0-1 per week Substance use: never Substance use type: does not use Last use: 25 YRS AGO Living arrangements: with family 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
[2021-11-29] MEDS: LACTATED RINGERS 1,000 ML 30 ML IV CONT ×2 (10:40→15:50)
[2021-11-29] MEDS: ACETAMINOPHEN 500 MG TABLET 1000 MG PO (10:42)
[2021-11-29] MEDS: TRANEXAMIC ACID 1,000MG/ISO100 1,000 MG/100 ML BAG 200 MG IVPB (10:42)
--- NOTE | 2021-11-29 11:24 | WPDHPUPDATE1 ---
History and Physical Update Update Date/Time: 11/29/21 11:24 History and Physical has been reviewed, including an updated exam of the patient. There are NO changes in the patient's condition. Risks, benefits, and alternatives have been discussed and questions answered. Patient agrees to proceed with procedure.
[2021-11-29] MEDS: ceFAZolin 2 GM/D5W 50 ML 2 GM/50 ML BAG IVPB ×2 (12:17→19:49)
--- NOTE | 2021-11-29 14:33 | SUR.OPER ---
patient maintains lateral position and unchanged.
[2021-11-29] MEDS: TRANEXAMIC ACID 1,000 MG/10 ML AMPUL 1000 MG IV PUSH (15:02)
--- NOTE | 2021-11-29 15:54 | W.PM.PROC2 ---
Procedure Note - Detailed Date of Procedure 11/29/21 Pre-op Diagnosis left hip DJD Post-op Diagnosis Same Procedure Performed L GASPER Surgeon Elijah Okeefe MD Anesthesia General Description of Procedure THE PATIENT WAS TAKEN TO THE OPERATING ROOM IN STABLE CONDITION AND WAS PLACED IN THE LATERAL DECUBITUS AND THE LEFT LOWER EXTREMITY WAS PREPPED AND DRAPED IN THE STERILE FASHION. INCISION WAS MADE IN THE POSTERIOR LATERAL SIDE OF THE HIP, DOWN TO THE FASCIA LAYER. THE FASCIA WAS INCISED. THE HIP WAS EXPOSED. THE SHORT EXTERNAL ROTATORS WERE EXPOSED. THE SCIATIC NERVE WAS IDENTIFIED. INCISION WAS MADE THROUGH THE SHORT EXTERNAL ROTATORS AND THE CAPSULE OF THE HIP JOINT. THE HIP WAS DISLOCATED. AN OSTEOTOMY WAS MADE TO THE FEMORAL NECK ABOUT 1 CM PROXIMAL TO THE LESSER TROCHANTER. THE ACETABULUM WAS EXPOSED. THERE WAS SEVERE DJD SEEN. BEGINNING WITH A 44 REAMER THE ACETABULUM WAS REAMED TO 53 MM. A 54 MM TRIAL WAS PLACED IN 35 DEG OF ABDUCTION AND ANTEVERSION WAS IN ALIGNMENT WITH THE TRANS ACETABULAR LIGAMENT. THE FIT WAS EXCELLENT. THE TRIAL WAS REMOVED. A 50 MM BIOMET G7 COMPONENT WAS THEN TAPPED IN TO PLACE IN 35 DEG OF ABDUCTION AND ANTEVERSION IN ALIGNMENT WITH THE TRANSVERSE ACETABULAR LIGAMENT. THE FIT WAS EXCELLENT. THE ACETABULAR LINER WAS PLACED AND CHECKED FOR STABILITY. NEXT THE FEMUR WAS PREPARED WITH INITIAL CANAL FINDER THEN SEQUENTIAL BROACHING WITH A TAPERLOC HIP SYSTEM, UNTIL A 12 BROACH FIT WELL IN 15 OF ANTEVERSION. A +3 HIGH OFFSET NECK WITH 36 MM HEAD TRIAL WAS PLACED. THE SHUCK TEST WAS EXCELLENT AND THE STABILITY IN FLEXION AND ROTATION WAS EXCELLENT. LEG LENGTHS WERE GROSSLY EQUAL. TRIALS WERE REMOVED. A BIOMET TAPERLOC 12 STEM WAS PLACED WITH A HIGH OFFSET NECK THE FIT WAS EXCELLENT IN 15 DEG OF ANTEVERSION. A CERAMIC 36 MM FEMORAL CERAMIC HEAD WAS PLACED. THE HIP WAS TRIALED AND THE STABILITY WAS EXCELLENT WERE THE LEG LENGTHS AND THE SHUCK TEST. THE WOUND WAS IRRIGATED WITH STERILE BETADINE AND WATER FOR 3 MIN. THEN WASHED AGAIN. THE CAPSULE AND THE EXTERNAL ROTATORS WERE APPROXIMATED WITH NUMBER 1 VICRYL. THE FASCIA WITH No 2 QUIL AND THE SUB CUTANEOUS LAYER WITH 2-0 ABSORBABLE SUTURE WITH A RUNNING 3-0 SUBCUTICULAR LAYER WELL. DERMABOND WAS PLACED AND STERILE DRESSING WAS APPLIED. PATIENT WAS PLACED BACK ON TO THE SUPINE POSITION AND WAS EXTUBATED Estimated Blood Loss 200 Complications No immediate complications Condition Stable Disposition PACU
[2021-11-29] MEDS: fentaNYL CITRATE INJ (*CRX) 100 MCG/2 ML VIAL 25 MCG IV PUSH ×5 (16:12→17:02)
--- NOTE | 2021-11-29 17:26 | ADMGEN ---
This patient, Odalys Barnhart, was admitted to Medical Room 248-. Patient/family oriented to hospital policies and general routines including ID bracelet, bed and alarms, visiting hours, pain management, procedures, bathroom and other care routines, personal items, smoking policy, room service/diet, and visiting hours. Information on how to activate the Rapid Response Team has been discussed. Patient/Family are encouraged to report perceived risks to care and to ask questions if they do not understand what they are told or what they should do.
[2021-11-29] MEDS: SODIUM CHLORIDE 0.9% IV 1,000 ML 125 ML IV CONT (17:54)
[2021-11-29] MEDS: MORPHINE SULFATE (*CRX) 4 MG/ML INJ 3 MG IV PUSH (17:55)
[2021-11-29] MEDS: SENNA/DOCUSATE SODIUM TABLET 2 TAB PO (18:38)
[2021-11-29] MEDS: FAMOTIDINE 20 MG TABLET PO (19:52)
[2021-11-29] MEDS: ONDANSETRON INJ 4 MG/2 ML VIAL IV PUSH (21:48)
[2021-11-30] VITALS (7 sets, daily range): BP systolic 109–131; BP diastolic 59–76; PULSE 83–108; RESP 16–21; TEMP 36.1–36.8; O2SAT 93–100
[2021-11-30] MEDS: MORPHINE SULFATE (*CRX) 4 MG/ML INJ 3 MG IV PUSH (02:54)
[2021-11-30] MEDS: ONDANSETRON INJ 4 MG/2 ML VIAL IV PUSH ×2 (02:54→07:36)
[2021-11-30] MEDS: SODIUM CHLORIDE 0.9% IV 1,000 ML 125 ML IV CONT (03:06)
[2021-11-30] MEDS: ceFAZolin 2 GM/D5W 50 ML 2 GM/50 ML BAG IVPB ×2 (03:08→11:34)
[2021-11-30 06:16] LABS: Basophils Percent Auto 0.2 % (0.2-1.2); Hematocrit 33.6 % (37.0-47.0); Hemoglobin 11.4 g/dL (12.0-15.0); Immature Granulocyte Absolute 0.09 K/mm3 (0.00-0.031); Immature Granulocyte Percent A 0.6 % (0-0.5); Lymphocytes Absolute Auto 1.04 K/mm3 (0.9-3.2); Lymphocytes Percent Auto 7.1 % (18.3-44.2); Mean Corpuscular HGB Conc 33.9 g/dl (32-36); Mean Corpuscular Hemoglobin 31.4 pg (26-34); Mean Corpuscular Volume 92.6 fl (80-100); Mean Platelet Volume 10.3 fl (7.4-10.4); Monocytes Absolute Auto 1.1 K/mm3 (0.1-0.6); Monocytes Percent Auto 7.5 % (2.6-8.5); Neutrophils Absolute Auto 12.4 K/mm3 (1.3-6.7); Neutrophils Percent Auto 84.6 % (45.5-73.1); Platelet Count Result 205 k/mm3 (150-375); Red Blood Count 3.63 M/mm3 (4.2-5.4); Red Cell Distribution Width 12.1 % (11.5-14.5); White Blood Count 14.7 K/mm3 (4.5-10.0)
[2021-11-30 06:31] LABS: Anion Gap 3 mmol/L (8-16); Blood Urea Nitrogen 11 mg/dL (7-17); Calcium 8.2 mg/dL (8.4-10.2); Carbon Dioxide 29 mmol/L (22-30); Chloride 106 mmol/L (98-107); Estimated CRCL calculation 85 ml/min; Estimated Glomerular Filt Rate > 60; Glucose 137 mg/dL (65-110); Potassium 4.8 mmol/L (3.4-5.0); Sodium 138 mmol/L (137-145)
[2021-11-30] MEDS: oxyCODONE HCL (*CRX) 5 MG TAB IR PO ×2 (07:40→14:34)
[2021-11-30] MEDS: ASPIRIN 325 MG ENTERIC TABLET 650 MG PO (09:01)
[2021-11-30] MEDS: CYANOCOBALAMIN 1,000 MCG TABLET 1000 MCG PO (09:02)
[2021-11-30] MEDS: CELECOXIB 200 MG CAPSULE PO (09:02)
[2021-11-30] MEDS: CHOLECALCIFEROL 1,000 UNITS TABLET 5000 UNITS PO (09:02)
[2021-11-30] MEDS: SENNA/DOCUSATE SODIUM TABLET 2 TAB PO (09:02)
[2021-11-30] MEDS: FAMOTIDINE 20 MG TABLET PO (09:02)
[2021-11-30] MEDS: ZINC SULFATE 220 MG CAPSULE 50 MG PO (09:03)
[2021-11-30] MEDS: polyethylene glycoL 3350 17 GM POWD.PACK PO (09:03)
[2021-11-30] MEDS: hydroCHLOROthiazide 25 MG TABLET PO (09:03)
[2021-11-30] MEDS: LOSARTAN POTASSIUM 100 MG TABLET PO (09:03)
[2021-11-30] MEDS: METOPROLOL TARTRATE 25 MG TABLET PO (09:03)
[2021-11-30] MEDS: CYCLOBENZAPRINE HCL 10 MG TABLET PO (09:04)
--- NOTE | 2021-11-30 13:52 | PM.PNORT ---
Progress Note: A&P Additional Plan POD 1 DOING NWELL. OK TO DC HOME F/U IN 3 WEEKS Time Spent With Patient Time with patient: less than 15 minutes Subjective Subjective Date/Time Seen: 11/30/21 13:52POD 1 DOING WELL. NO CALF PAIN. Exam Extrem: Other: VSS AFEBRILE DRESSING DRY NV INTACT NEG HOMANS SIGN CALF SOFT Objective Data Vital Signs Vital Signs: Vital Signs - 24 hr 11/29/21 15:50 11/29/21 16:05 11/29/21 16:20 Temperature 36.6 C Pulse Rate 88 81 85 Respiratory Rate 16 12 12 Blood Pressure 130/76 134/83 126/71 Pulse Oximetry 100 100 100 11/29/21 16:35 11/29/21 16:50 11/29/21 17:05 Temperature Pulse Rate 90 87 61 Respiratory Rate 18 16 12 Blood Pressure 122/67 132/81 131/73 Pulse Oximetry 100 100 100 11/29/21 17:25 11/29/21 17:40 11/29/21 18:10 Temperature 36.3 C L 36.4 C L 36.3 C L Pulse Rate 91 78 97 Respiratory Rate 18 16 16 Blood Pressure 133/73 133/68 131/71 Pulse Oximetry 99 99 98 11/29/21 22:54 11/30/21 02:54 11/30/21 06:45 Temperature 36.2 C L 36.3 C L 36.8 C Pulse Rate 92 106 H 108 H Respiratory Rate 20 21 H 21 H Blood Pressure 138/76 124/76 109/60 Pulse Oximetry 98 100 100 11/30/21 07:45 11/30/21 08:00 11/30/21 09:03 Temperature 36.1 C L Pulse Rate 95 97 Respiratory Rate 18 Blood Pressure 131/72 Pulse Oximetry 99 93 11/30/21 10:54 Temperature 36.4 C L Pulse Rate 83 Respiratory Rate 16 Blood Pressure 117/59 L Pulse Oximetry 99 Intake/Output Intake/Output: Intake & Output 11/27/21 11/28/21 11/29/21 11/30/21 23:59 23:59 23:59 23:59 Intake Total 800 2050 Output Total 1300 Balance 800 750 Meds/Results Medications: Active Medications Generic Name Dose Route Start Last Admin Trade Name Freq PRN Reason Stop Dose Admin Acetaminophen 650 mg 11/29/21 17:09 Acetaminophen 325 Mg Tablet PO Q6H PRN Mild Pain (1-3) or Fever Albuterol 1 puff 11/29/21 17:09 Albuterol Sulfate (*Sp) Aerosol 1 Puff INHALATION Q4H PRN Shortness Of Breath Aspirin 650 mg 11/30/21 09:00 11/30/21 09:01 Aspirin 325 Mg Enteric Tablet PO 650 mg DAILY KIMBERLI Administration Celecoxib 200 mg 11/30/21 09:00 11/30/21 09:02 Celecoxib 200 Mg Capsule PO 200 mg DAILY KIMBERLI Administration Cyanocobalamin 1,000 mcg 11/30/21 09:00 11/30/21 09:02 Cyanocobalamin 1,000 Mcg Tablet PO 1,000 mcg DAILY KIMBERLI Administration Cyclobenzaprine HCl 10 mg 11/29/21 17:09 11/30/21 09:04 Cyclobenzaprine Hcl 10 Mg Tablet PO 10 mg BID PRN Administration muscle spasm Diazepam 5 mg 11/29/21 17:09 Diazepam (*Crx) 5 Mg Tablet PO Q6H PRN Anxiety/Muscle Spasm Famotidine 20 mg 11/29/21 21:00 11/30/21 09:02 Famotidine 20 Mg Tablet PO 20 mg Q12HR KIMBERLI Administration Hydrochlorothiazide 25 mg 11/30/21 09:00 11/30/21 09:03 Hydrochlorothiazide 25 Mg Tablet PO 25 mg DAILY KIMBERLI Administration Losartan Potassium 100 mg 11/30/21 09:00 11/30/21 09:03 Losartan Potassium 100 Mg Tablet PO 100 mg DAILY KIMBERLI Administration Metoprolol Tartrate 25 mg 11/30/21 09:00 11/30/21 09:03 Metoprolol Tartrate 25 Mg Tablet PO 25 mg DAILY KIMBERLI Administration Morphine Sulfate 3 mg 11/29/21 17:09 11/30/21 02:54 Morphine Sulfate (*Crx) 4 Mg/Ml Inj IV PUSH 3 mg Q3H PRN Administration Pain Rated 7-10 Naloxone HCl 0.1 mg 11/29/21 17:09 Naloxone Hcl 0.4 Mg/Ml Vial IV PUSH Q2M PRN Opiate Reversal Naproxen 500 mg 11/29/21 17:09 Naproxen 500 Mg Tablet PO BID PRN Pain Ondansetron HCl 4 mg 11/29/21 17:09 11/30/21 07:36 Ondansetron Inj 4 Mg/2 Ml Vial IV PUSH 4 mg Q4H PRN Administration Nausea And Vomiting Oxycodone HCl 5 mg 11/29/21 17:09 11/30/21 07:40 Oxycodone Hcl (*Crx) 5 Mg Tab Ir PO 5 mg Q4H PRN Administration Pain Rated 4-6 Polyethylene Glycol 17 gm 11/30/21 09:00 11/30/21 09:03 Polyethylene Glycol 3350 17 Gm Pow
--- NOTE | 2021-11-30 13:53 | PM.DS ---
DS: Admitting Diagnosis Discharge Date 11/30/21 Admitting Diagnosis LEFT HIP DJD DS: Discharge Diagnosis Discharge Diagnosis (1) Degenerative joint disease of left hip: Qualifiers: Osteoarthritis type: primary Qualified Code(s): M16.12 - Unilateral primary osteoarthritis, left hip Code(s): M16.12 - Unilateral primary osteoarthritis, left hip Status: Acute DS: Summary Hospital Course Reason for hospitalization: L GASPER Hospital Course: PATIENT WAS ADMITTED S/P TOTAL LEFT HIP ARTHROPLASTY FOR POSTOPERATIVE MEDICAL MANAGEMENT, PAIN CONTROL AND MOBILIZATION WITH PHYSICAL AND OCCUPATIONAL THERAPY. THE PATIENT PROGRESSED WELL WITH PT/OT. LABS AND VITALS REMAINED STABLE AND PAIN WELL CONTROLLED. THE PATIENT HAS BEEN CLEARED TO BE DISCHARGED HOME. FOLLOW UP APPOINTMENT SCHEDULED. DISCHARGE INSTRUCTIONS DISCUSSED AT LENGTH WITH THE PATIENT. MEDICATIONS REVIEWED. Time spent discussing smoking cessation with patient: more than 10 minutes Status at Discharge Functional status at discharge: uses cane/walker Time Spent with Patient Time attestation: Total time spent providing and/or coordinating discharge services: Time spent: Less than 30 minutes DS: Data Data Completed and Pending Labs on day of discharge: Labs from last 24 hours 11/30/21 11/30/21 05:37 05:37 WBC 14.7 H RBC 3.63 L Hgb 11.4 L D Hct 33.6 L MCV 92.6 MCH 31.4 MCHC 33.9 RDW 12.1 Plt Count 205 MPV 10.3 Immature Gran % (Auto) 0.6 H Neut % (Auto) 84.6 H Lymph % (Auto) 7.1 L Hernando % (Auto) 7.5 Eos % (Auto) 0.0 Baso % (Auto) 0.2 Lymph # (Auto) 1.04 Hernando # (Auto) 1.1 H Eos # (Auto) 0.0 Baso # (Auto) 0.0 Abs Immat Gran (auto) 0.09 H Absolute Neuts (auto) 12.4 H Absolute Nucleated RBC 0.0 Nucleated RBC % 0.0 Sodium 138 Potassium 4.8 Chloride 106 Carbon Dioxide 29 Anion Gap 3 L BUN 11 Creatinine 0.90 Estim Creat Clear Calc 85 Estimated GFR > 60 Glucose 137 H Calcium 8.2 L Discharge Plan Discharge Patient Disposition: Home Health Service Discharge Instructions: Per Care Coordination Patient is arranged to have [facility] for RN, PT,OT [phone] Patient Instructions: Antibiotic Form, Precautions after Total Joint Replacement Surgery (DC) Stand Alone Forms: General Discharge Information Discharge Medications: No Action cyclobenzaprine 10 mg tablet 10 mg PO BID PRN (Reason: muscle spasm) Qty: 30 RF: 0 metoprolol tartrate 25 mg tablet 25 mg PO DAILY Qty: 90 RF: 3 losartan 100 mg tablet 100 mg PO DAILY Qty: 90 RF: 3 hydrochlorothiazide 25 mg tablet 25 mg PO DAILY Qty: 90 RF: 3 albuterol sulfate [ProAir HFA] 90 mcg/actuation HFA aerosol inhaler 1 puff INHALATION Q4H PRN (Reason: Shortness Of Breath) Qty: 8.5 RF: 1 cyanocobalamin (vitamin B-12) 1,000 mcg capsule 1,000 mcg PO DAILY RF: 0 cholecalciferol (vitamin D3) 125 mcg (5,000 unit) Tablet 1,000 unit PO DAILY RF: 0 aspirin 81 mg Tablet 81 mg PO DAILY RF: 0 zinc 50 mg Tablet 50 mg PO DAILY RF: 0 multivitamin [Multi-Vitamin] Tablet 1 tablet PO DAILY RF: 0 Elderberry 200 mg Capsule 200 mg PO DAILY RF: 0 naproxen 500 mg Tablet 500 mg PO BID PRN (Reason: Pain) RF: 0 ibuprofen 600 mg Tablet 600 mg PO Q6H PRN (Reason: Pain) RF: 0
== END 2021-11-30 15:49 | disposition home health service (06) ==
LOC: ANHSURGERY 10:02 → ANH2MED 11-30 08:20
PROVIDERS: PCP Internal Medicine; Visit Provider Orthopaedic Surgery
PROC: (CPT 27130; principal; 2021-11-29 12:00)
DX: M16.12 Unilateral primary osteoarthritis, left hip (principal); J45.909 Unspecified asthma, uncomplicated; I10 Essential (primary) hypertension; E55.9 Vitamin D deficiency, unspecified; Z87.891 Personal history of nicotine dependence; E66.9 Obesity, unspecified; Z68.38 Body mass index [BMI] 38.0-38.9, adult; Z79.51 Long term (current) use of inhaled steroids; Z79.82 Long term (current) use of aspirin
CPT/HCPCS: 27130; 36415; 73501; 80048; 85025; 97110; 97116; 97161; 97165; 97530; 97535; A9270; C1713; C1776; J0171; J0330; J0690; J1100; J1170; J1885; J2250; J2270; J2405; J2704; J2710; J2795; J3010; J7030; J7120

== ENCOUNTER 2022-09-07 10:51 | Emergency (ER) | payer BC, SELFPAY ==
--- NOTE | ~2022-09-07 | CT_ITS ---
EXAMINATION: CT abdomen pelvis w con DATE: 09/07/2022 15:40 INDICATION: Abdominal pain, cramping and bloody diarrhea. TECHNIQUE: Computed tomography (CT) of the abdomen and pelvis was performed with 100 mL Omnipaque-350 intravenous contrast. 1432 The dose-length product was 1432.16 mGy-cm. COMPARISON: None FINDINGS: Lung bases are clear. Heart size is normal. No pericardial or pleural effusion. Cholecystectomy clips the gallbladder fossa. Tiny low-attenuation lesion in the right hepatic lobe most likely hepatic cys t but too small to definitively characterize. Spleen, pancreas, bilateral adrenal glands and kidneys are normal. Bladder and anteverted uterus are unremarkable. There is wall thickening along the distal sigmoid colon and rectum consistent with a distal proctocolitis. Small bowel and appendix are normal . No pneumatosis, abscess or free intraperitoneal gas or fluid. No pathologically enlarged abdominal or pelvic lymphadenopathy. There are bridging osteophytes at multiple levels in the spine, consistent with diffuse idiopathic skeletal hyperostosis (DISH). IMPRESSION: 1. Wall thickening in the distal sigmoid colon and rectum consistent with a distal proctocolitis whic h could be infectious, inflammatory or ischemic in etiology. Reviewed, dictated and finalized at location B. LY PRACTICE DOCTOR IMPRESSION: 1. Wall thickening in the distal sigmoid colon and rectum consistent with a dis lindsay proctocolitis which could be infectious, inflammatory or ischemic in etiolo gy.
[2022-09-07 11:21] VITALS: BP 148/90; PULSE 91; RESP 18; TEMP 36.2; O2SAT 98
[2022-09-07 13:49] VITALS: BP 135/94; PULSE 96; RESP 20; TEMP 37; O2SAT 100
[2022-09-07 14:01] LABS: Basophils Absolute Auto 0.1 K/mm3 (0.0-0.1); Basophils Percent Auto 0.8 % (0.2-1.2); Eosinophils Absolute Auto 0.1 K/mm3 (0-0.3); Eosinophils Percent Auto 0.8 % (0-4.4); Hematocrit 44.5 % (37.0-47.0); Hemoglobin 14.7 g/dL (12.0-15.0); Immature Granulocyte Absolute 0.02 K/mm3 (0.00-0.031); Immature Granulocyte Percent A 0.3 % (0-0.5); Lymphocytes Absolute Auto 1.66 K/mm3 (0.9-3.2); Lymphocytes Percent Auto 21.3 % (18.3-44.2); Mean Corpuscular Hemoglobin 30.3 pg (26-34); Mean Corpuscular Volume 91.8 fl (80-100); Mean Platelet Volume 9.4 fl (7.4-10.4); Monocytes Absolute Auto 0.6 K/mm3 (0.1-0.6); Monocytes Percent Auto 7.7 % (2.6-8.5); Neutrophils Absolute Auto 5.4 K/mm3 (1.3-6.7); Neutrophils Percent Auto 69.1 % (45.5-73.1); Platelet Count Result 248 k/mm3 (150-375); Red Blood Count 4.85 M/mm3 (4.2-5.4); Red Cell Distribution Width 12.2 % (11.5-14.5); White Blood Count 7.8 K/mm3 (4.5-10.0)
[2022-09-07 14:13] LABS: Potassium 3.7 mmol/L (3.4-5.0)
[2022-09-07 14:16] LABS: Alanine Aminotransferase 25 U/L (6-35); Albumin Level 4.1 g/dL (3.5-5.1); Alkaline Phosphatase 95 U/L (38-126); Anion Gap 3 mmol/L (8-16); Aspartate Amino Transferase 23 U/L (14-36); Bilirubin,Total 0.4 mg/dL (0.2-1.3); Blood Urea Nitrogen 7 mg/dL (7-17); Carbon Dioxide 30 mmol/L (22-30); Chloride 104 mmol/L (98-107); Estimated CRCL calculation 104 ml/min; Estimated Glomerular Filt Rate > 60; Glucose 111 mg/dL (65-110); Lipase 50 U/L (23-300); Sodium 137 mmol/L (137-145)
[2022-09-07 14:27] LABS: Add Urine Microscopic? YES; Appearance Urine Clear (Clear); Bilirubin Urine Negative (Negative); Blood Urine Trace-Intact (Negative); Color Urine Light Yellow (Yellow); Glucose Urine UA Negative (Negative); Ketones Urine Negative (Negative); Leukocyte Esterase Ur Negative LEU/UL (Negative); Nitrate Urine Negative (Negative); Protein Urine Negative (Negative); Specific Grav Ur 1.025 (1.001-1.035); Urobilinogen Urine 0.2 mg/dL (<2.0)
[2022-09-07 14:32] LABS: Mucus Urine Rare /lpf; Squamous Epithelial Cell Urine Rare /hpf (Few); WBC Urine 0-3 /hpf
--- NOTE | 2022-09-07 15:06 | ED.GENADULT ---
HPI - General Adult General Chief complaint: Nausea/Vomiting/Diarrhea Stated complaint: diarrhea Time Seen by Provider: 09/07/22 15:01 History of Present Illness HPI narrative: Patient presents to emergency department from home for blood in her stool. Patient states that she has been having pinkish blood in her stool since last night. States she has had numerous episodes of bloody bowel movements she states has been associated with lower abdominal pain described as cramping in nature. She denies any fevers or chills she denies any nausea or vomiting. States she does have a history of a colonoscopy at age 51 [address] Martell she states that she has not take anything for the symptoms she denies any blood thinner use Related Data Home Medications Medication Instructions Recorded Confirmed cyanocobalamin (vitamin B-12) 1,000 mcg PO DAILY 05/05/20 04/11/22 1,000 mcg capsule cholecalciferol (vitamin D3) 125 1,000 unit PO DAILY 04/25/21 04/11/22 mcg (5,000 unit) tablet zinc 50 mg tablet 50 mg PO DAILY 04/25/21 04/11/22 elderberry fruit 200 mg capsule 200 mg PO DAILY 11/17/21 04/11/22 multivitamin 1 tablet PO DAILY 11/17/21 04/11/22 hydrochlorothiazide 12.5 mg tablet 12.5 mg PO DAILY 12/08/21 04/11/22 Allergies Allergy/AdvReac Type Severity Reaction Status Date / Time amoxicillin Allergy Severe Hives Verified 04/11/22 09:24 Penicillins Allergy Severe Hives Verified 04/11/22 09:24 tramadol AdvReac Nausea Verified 04/11/22 09:24 Review of Systems Review of Systems: Gen.: Denies fevers or chills ENT: Denies congestion Respiratory: Denies shortness of breath or cough CV: Denies chest pain or palpitations GI: See HPI denies burning, urgency, frequency or hematuria Musculoskeletal: Denies back pain or muscle pain Neuro: Denies numbness, tingling, weakness or focal weakness Skin: Denies rash Except as documented, all other systems reviewed and negative PMFSH Past Medical History Medical History Acquired cavovarus deformity of both feet Arthritis Asthma Bone tumor Removed 1977 Bronchitis Contracture of left Achilles tendon COVID-05 August 2021 Elevated LFTs Fractures Gallbladder attack Hyperglycemia Hypertension Medial meniscus tear Migraine Morbid obesity with BMI of 40.0-44.9, adult Pneumonia Post-menopausal Sludge in gallbladder Tear meniscus knee Vision changes Vitamin D deficiency Surgical History Surgical History H/O section 1990 History of ankle surgery 2014 History of hip surgery Left GASPER 11/29/[address] Okeefe History of knee surgery History of tubal ligation Hx laparoscopic cholecystectomy 05/02/21 Laparoscopic Cholecystectomy with intraoperative cholangiogram S/P lumpectomy of breast 1999 left breast S/P removal of right ovary Family History Family History Sibling Hypertension Father Hypertension Autonomic neuropathy due to disorder of immune function Sibling Hypertension Diabetes mellitus Mother Patient's mother is in good health Grandparent Malignant neoplasm of prostate Grandparent Cerebrovascular accident Uterine cancer Other Family history of arthritis Family history of malignant neoplasm Social History Social History Smoking packs per day: 1 Smoking cigarettes per day: 20.0 Years smoked: 5 Smoking pack-years: 5.00 Smoking status: Former smoker Tobacco type: cigarettes Smoking end date: 09/17/98 Additional smoking assessment comments: DENIES ANY FORM OF TOBACCO USE Alcohol intake: current Alcohol use details: 0-1 per week Substance use: never Substance use type: does not use Last use: 25 YRS AGO 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
[2022-09-07] MEDS: SODIUM CHLORIDE 0.9% IV 1,000 ML 999 ML IV CONT (15:26)
[2022-09-07 16:57] LABS: Lactic Acid Reflex 0.6 mmol/L (0.7-2.0)
[2022-09-07 16:59] LABS: Partial Thromboplastin Time 24.9 SECONDS (22.3-36.8); Prothrombin Time 13.1 Seconds (11.1-14.7)
[2022-09-07] MEDS: metroNIDAZOLE 250 MG TABLET 500 MG PO (17:28)
[2022-09-07] MEDS: CIPROFLOXACIN 500 MG TAB PO (17:29)
== END 2022-09-07 17:50 | disposition home or self-care (01) ==
PROVIDERS: Physician Assistant; Emergency Provider Emergency Medicine; PCP Internal Medicine
DX: K52.9 Noninfective gastroenteritis and colitis, unspecified (principal); J45.909 Unspecified asthma, uncomplicated; I10 Essential (primary) hypertension; E66.01 Morbid (severe) obesity due to excess calories; Z68.36 Body mass index [BMI] 36.0-36.9, adult; E55.9 Vitamin D deficiency, unspecified; M19.90 Unspecified osteoarthritis, unspecified site; Z86.16 Personal history of COVID-19; Z87.01 Personal history of pneumonia (recurrent); Z96.642 Presence of left artificial hip joint; Z87.891 Personal history of nicotine dependence
CPT/HCPCS: 36415; 74177; 80053; 81001; 83605; 83690; 85025; 85610; 85730; 96360; 96361; 99284; A9270; J7030; Q9967

== ENCOUNTER → 2022-09-20 08:42 | Outpatient (CLI) | payer BC, SELFPAY ==
--- NOTE | ~2022-09-20 | XR_ITS ---
EXAMINATION: XR_CERV2-3V_CR DATE: 09/20/2022 08:56 INDICATION: Left neck pain. TECHNIQUE: 3 views of cervical spine were obtained. COMPARISON: None. FINDINGS: Bone alignment is normal. Vertebral body heights and intervertebral disc heights are normal . There are bridging anterior endplate osteophytes from at least C3 to C7, consistent with diffuse id iopathic skeletal hyperostosis (DISH). At C2-C3, there is moderate bilateral facet joint hypertrophy. No central canal stenosis or prevertebral soft tissue swelling. IMPRESSION: 1. DISH. 2. Mild cervical spondylosis. Reviewed, dictated and finalized at location A. L ADVISOR
== END ==
PROVIDERS: PCP Internal Medicine; Visit Provider Nurse Practitioner
DX: M47.892 Other spondylosis, cervical region (principal); M48.12 Ankylosing hyperostosis [Forestier], cervical region
CPT/HCPCS: 72040

== ENCOUNTER 2022-10-01 07:44 | Outpatient (CLI) | payer BC, SELFPAY ==
--- NOTE | ~2022-10-01 | MR_ITS ---
MRI of the cervical spine Clinical History: Neck pain, radiculopathy Technique: Axial T2-weighted and gradient images, and sagittal T1-weighted, T2-weighted, and STIR ariana ges were acquired. Findings: There is no fracture or subluxation of the cervical spine. Vertebral bodies maintain normal height and alignment. Extensive bridging anterior osteophytes are present, compatible with DISH. No suspicious bone marrow signal abnormality identified. At C2-C3, there is no disc bulge or herniation. No spinal canal stenosis, cord compression, or neural foraminal narrowing. At C3-C4, there is no disc bulge or herniation. No spinal canal stenosis, cord compression, or neural foraminal narrowing. At C4-C5, there is no disc bulge or herniation. No spinal canal stenosis, cord compression, or neural foraminal narrowing. At C5-C6, there is minimal disc bulge. There is minimal flattening of the ventral cord on the left si de. Neural foramina are preserved bilaterally. At C6-C7, there is minimal disc bulge. No spinal canal stenosis, cord compression, or neural foramina l narrowing. No abnormal signal seen in the spinal cord. Paravertebral soft tissues are unremarkable. Impression: Minimal degenerative spondylosis, as above. DISH of the cervical spine. Reviewed, dictated and finalized at location . ER AND GUIDANCE COUNSELOR Impression: Minimal degenerative spondylosis, as above. DISH of the cervical spine.
== END 2022-10-01 07:45 | disposition home or self-care (01) ==
PROVIDERS: PCP Internal Medicine; Visit Provider Nurse Practitioner
DX: M54.2 Cervicalgia (principal); M48.12 Ankylosing hyperostosis [Forestier], cervical region
CPT/HCPCS: 72141

== ENCOUNTER 2022-10-03 00:39 | Day surgery (SDC) | payer BC, SELFPAY ==
[2022-09-20 11:33] VITALS: BMI 37.7
[2022-10-03 11:41] VITALS: BP 147/95; PULSE 90; RESP 20; TEMP 36; O2SAT 100; BMI 36.3
[2022-10-03] MEDS: LACTATED RINGERS 1,000 ML 150 ML IV CONT (11:45)
--- NOTE | 2022-10-03 12:25 | WPDANESEPPF ---
Anes - Initial Pre Proc Eval Procedure: Operation Date: 10/03/22 13:00 Proposed Procedures p Colonoscopy - Triston Renee MD Date/Time: 10/03/22 12:25 Surgeon: Triston Renee MD Pre Op Diagnosis: diarrhea, colitis Patient Data Age: 57 Gender: F Height: 1.75 m Weight: 111.6 kg Last Vital Signs Temp 96.8 F L 10/03/22 11:41 Pulse 90 10/03/22 11:41 Resp 20 10/03/22 11:41 BP 147/95 H 10/03/22 11:41 Pulse Ox 100 10/03/22 11:41 O2 Del Method Room Air 10/03/22 11:41 Allergies Allergy/AdvReac Type Severity Reaction Status Date / Time amoxicillin Allergy Severe Hives Verified 10/03/22 11:39 Penicillins Allergy Severe Hives Verified 10/03/22 11:39 tramadol AdvReac Nausea Verified 10/03/22 11:39 Home Medications Medication Instructions Recorded Confirmed Type cyanocobalamin (vitamin B-12) 1,000 mcg PO DAILY 05/05/20 09/29/22 History 1,000 mcg capsule cholecalciferol (vitamin D3) 125 1,000 unit PO DAILY 04/25/21 09/29/22 History mcg (5,000 unit) tablet zinc 50 mg tablet 50 mg PO DAILY 04/25/21 09/29/22 History elderberry fruit 200 mg capsule 200 mg PO DAILY 11/17/21 09/29/22 History multivitamin 1 tablet PO DAILY 11/17/21 09/29/22 History losartan 100 mg tablet 100 mg PO DAILY #90 tabs 08/15/22 09/29/22 Rx albuterol sulfate 90 mcg/actuation 1 puff inhalation Q4H PRN 09/06/22 09/29/22 Rx aerosol inhaler (ProAir HFA) Shortness Of Breath #8.5 grams metoprolol tartrate 25 mg tablet 25 mg PO DAILY #90 tabs 09/14/22 09/29/22 Rx aspirin 81 mg capsule 81 mg PO DAILY 09/20/22 09/29/22 History cyclobenzaprine 10 mg tablet 10 mg PO TID PRN muscle spasm #30 09/20/22 09/29/22 Rx tabs Patient hx anesthesia problems: none Family hx anesthesia problems: none Results Review: All pre-operative results and documents have been reviewed as part of the pre-operative evaluation. [facility] Past Medical History Medical History (Updated 09/29/22 @ 08:50 by Julio Molina MD) Abnormal digestive system diagnostic imaging Acquired cavovarus deformity of both feet Acute diarrhea Arthritis Asthma Bone tumor Removed 1977 Bronchitis Cholecystitis Contracture of left Achilles tendon COVID-05 August 2021 Elevated LFTs Fecal incontinence Fractures Gallbladder attack Hematochezia Hyperglycemia Hypertension Medial meniscus tear Migraine Morbid obesity with BMI of 40.0-44.9, adult Non-specific colitis Pneumonia Post-menopausal Screening mammogram, encounter for Sludge in gallbladder Tear meniscus knee Vision changes Vitamin D deficiency Surgical History Surgical History H/O section 1990 History of ankle surgery 2014 History of hip surgery Left GASPER 11/29/[address] Okeefe History of knee surgery History of tubal ligation Hx laparoscopic cholecystectomy 05/02/21 Laparoscopic Cholecystectomy with intraoperative cholangiogram S/P lumpectomy of breast 1999 left breast S/P removal of right ovary Family History Family History Sibling Hypertension Father Hypertension Autonomic neuropathy due to disorder of immune function Sibling Hypertension Diabetes mellitus Mother Patient's mother is in good health Grandparent Malignant neoplasm of prostate Grandparent Cerebrovascular accident Uterine cancer Other Family history of arthritis Family history of malignant neoplasm Social History Social History (Updated 09/29/22 @ 08:22 by ELISE Cabrera) Smoking packs per day: 1 Smoking cigarettes per day: 20.0 Years smoked: 5 Smoking pack-years: 5.00 Smoking status: Former smoker Tobacco type: cigarettes Smoking end date: 09/17/98 Additional smoking assessment comments: DENIES ANY FORM OF TOBACCO USE Alcohol intake: current Alcohol use details: 0-1 per week Substance use: never Substance use type
--- NOTE | 2022-10-03 12:38 | WPDHPUPDATE1 ---
History and Physical Update Update Date/Time: 10/03/22 12:38 History and Physical has been reviewed, including an updated exam of the patient. There are NO changes in the patient's condition. Risks, benefits, and alternatives have been discussed and questions answered. Patient agrees to proceed with procedure.
[2022-10-03 13:00] VITALS: BP 132/88; PULSE 72; RESP 21; O2SAT 100
[2022-10-03 13:10] VITALS: BP 139/85; PULSE 83; RESP 20; O2SAT 100
[2022-10-03 13:20] VITALS: BP 133/85; PULSE 71; RESP 17; O2SAT 100
== END 2022-10-03 13:38 | disposition home or self-care (01) ==
PROVIDERS: PCP Internal Medicine; Visit Provider Internal Medicine Gastroenterology
PROC: 0DJD8ZZ Inspection of Lower Intestinal Tract, Via Natural or Artificial Opening Endoscopic (ICD-10-PCS; CPT 45378; principal; 2022-10-03 13:00)
DX: Z12.11 Encounter for screening for malignant neoplasm of colon (principal); K64.8 Other hemorrhoids; Z87.19 Personal history of other diseases of the digestive system; I10 Essential (primary) hypertension; E55.9 Vitamin D deficiency, unspecified; Z87.891 Personal history of nicotine dependence; E66.9 Obesity, unspecified; Z68.36 Body mass index [BMI] 36.0-36.9, adult; Z79.82 Long term (current) use of aspirin; Z79.51 Long term (current) use of inhaled steroids
CPT/HCPCS: 45378; J2704; J7120

== ENCOUNTER → 2022-10-04 12:32 | Outpatient (CLI) | payer BC, SELFPAY ==
--- NOTE | ~2022-10-04 | MM_ITS ---
EXAMINATION: MM screening rod BI w veena HISTORY: Screening mammogram TECHNIQUE: Craniocaudal and mediolateral oblique 3-D tomosynthesis images were obtained and synthetic 2-D images were generated. CAD analysis was submitted and interpreted. COMPARISON: 07/12/2021 BREAST PARENCHYMAL COMPOSITION: There are scattered areas of fibroglandular density. FINDINGS: No suspicious mass, calcification, or architectural distortion are identified in either leia ast to suggest malignancy. There has been no suspicious interval change. IMPRESSION: 1. No mammographic evidence of malignancy. 2. Recommend routine screening mammography in one year. BI-RADS Category 1: Negative Reviewed, dictated and finalized at location A. CATE FABRICS PRESSER
== END ==
PROVIDERS: PCP Internal Medicine; Visit Provider Obstetrics & Gynecology
DX: Z12.31 Encounter for screening mammogram for malignant neoplasm of breast (principal)
CPT/HCPCS: 77063; 77067

== ENCOUNTER → 2022-11-30 13:17 | Outpatient (CLI) | payer BC, SELFPAY ==
--- NOTE | ~2022-11-30 | XR_ITS ---
EXAMINATION: XR shoulder LT min 2V DATE: 11/30/2022 13:27 INDICATION: Left shoulder pain TECHNIQUE: AP internally and externally rotated, AP oblique externally rotated and axillary views of the left shoulder were obtained. COMPARISON: None FINDINGS: Normal alignment. No fracture.Left glenohumeral osteoarthritis with mild nonuniform joint space narr owing and moderate-sized marginal osteophytes about the inferomedial aspect of the humeral head. Smal l marginal osteophytes along the glenoid. Moderate osteoarthritis at the left acromioclavicular joint . Soft tissues are unremarkable. Visualized portions of the lungs are clear. IMPRESSION: Moderate osteoarthritis at the left shoulder. Reviewed, dictated and finalized at location L.
== END ==
PROVIDERS: PCP Internal Medicine; Visit Provider Nurse Practitioner
DX: M19.012 Primary osteoarthritis, left shoulder (principal); M25.512 Pain in left shoulder
CPT/HCPCS: 73030

== ENCOUNTER → 2022-12-01 12:39 | Outpatient (CLI) | payer BC, SELFPAY ==
--- NOTE | ~2022-12-01 | US_ITS ---
EXAMINATION: US soft tissue upper back DATE: 12/01/2022 13:09 INDICATION: Lumps at the back. TECHNIQUE: Multiple grayscale and Doppler ultrasound images of the region of concern at the left mid back. COMPARISON: None FINDINGS: At the first region of concern in the mid left paraspinal region there is a 2.2 x 1.9 x 1.4 similar p oorly defined region isoechoic and with similar echogenicity and echotexture to the surrounding subcu taneous fat most likely either a lipoma or lobular region of normal subcutaneous fat. There is an 8 x 7 x 5 mm very hypoechoic very hypoechoic lesion with approximately 3 mm central echogenic region loc ated at the junction of the dermal and subdermal tissues with superficial margin 1.5 mm from the skin surface. There is no significant posterior acoustic enhancement but also no internal vascular flow o n color Doppler. IMPRESSION: 1. Nonspecific 8 mm very hypoechoic subdermal nodule which corresponds to the more lateral of the 2 l esions at the mid left back. Differential would include complex cystic etiology such as sebaceous/epi dermoid cyst or solid neoplasm which could be either benign or malignant. Could consider ultrasound-g uided core needle biopsy for further evaluation. 2. 2.2 x 1.9 x 1.4 cm somewhat nodular appearing region in the left or spinal fat which is difficult to distinguish from the surrounding subcutaneous fat most likely either a lipoma or artifactual nodul ar appearance of normal subcutaneous fat. Reviewed, dictated and finalized at location B. IMPRESSION: 1. Nonspecific 8 mm very hypoechoic subdermal nodule which corresponds to the m ore lateral of the 2 lesions at the mid left back. Differential would include c omplex cystic etiology such as sebaceous/epidermoid cyst or solid neoplasm whic h could be either benign or malignant. Could consider ultrasound-guided core ne edle biopsy for further evaluation. 2. 2.2 x 1.9 x 1.4 cm somewhat nodular appearing region in the left or spinal f at which is difficult to distinguish from the surrounding subcutaneous fat most likely either a lipoma or artifactual nodular appearance of normal subcutaneou s fat.
== END ==
PROVIDERS: PCP Nurse Practitioner; Visit Provider Nurse Practitioner
DX: R22.9 Localized swelling, mass and lump, unspecified (principal)
CPT/HCPCS: 76604

== ENCOUNTER 2023-01-08 00:29 | Day surgery (SDC) | payer BC, SELFPAY ==
[2022-12-28 10:01] VITALS: BMI 36.9
--- NOTE | 2022-12-28 10:20 | SUR.PREOP ---
Report to the Outpatient Waiting Room, entrance under the green pavilion located off [facility], at time 1230 on date 01/08/23. Planned Procedure Time: 1430. Time changes happen often and if your time is changed the preop area will call you the afternoon before. - You and your visitor will be asked to self-screen and do not enter if you have any COVID symptoms. - A mask is optional within the hospital at this time. Patients may have clear liquids (water, carbonated beverages, clear teas, apple juice) until 3 hours prior to surgery with a maximum of 20 ounces. - No food from midnight until time of surgery - Infants may have breast milk until 4 hours before surgery, formula 6 hours prior to surgery. - Children will be allowed to drink immediately following surgery. If applicable, please bring a bottle or sippy cup to assist with drinking. Juice, water, soda, and popsicles are readily available. For infants on formula, please bring formula the day of surgery. Pacifiers are allowed. Take the following medications with a SIP of water the morning of surgery: METOPROLOL, CYCLOBENZAPRINE IF NEEDED DO NOT STOP ANY OF YOUR OTHER PRESCRIPTION MEDICATIONS PRIOR TO SURGERY ?EXCEPT THE FOLLOWING Medications to discontinue per physician STOP ALL VITAMINS AND SUPPLIMENTS 3 DAYS PRIOR TO PROCEDURE Date to take last dose 01/05/23 Please no make-up, nail hebrew, hairspray, perfume, deodorant, or body powder the day of surgery. No jewelry (including any body piercings) or valuables the day of surgery, leave them at home. Please take a shower or bath the night before, or the morning of, surgery with an antibacterial soap. Wear comfortable, loose fitting clothing. Children are encouraged to wear pajamas. - Jewelry must be removed prior to entering the operating room. Rings and piercings that are not removed may be cut off. - The hospital will not accept responsibility for valuables. - Please leave all valuables, including medications, at home the day of surgery. If you are going home after surgery, a licensed sanitation truck driver must drive you home. - NO public transportation without another adult if you receive anesthesia. - We recommend that an adult stay with you for 24 hours following discharge. - We also recommend that you do not drive, make important decision, drink alcoholic beverages, or take any drugs that were not prescribed by your health care provider for at least 24 hours after your discharge time. For Pediatric surgeries, we recommend two adults accompany the child home. Follow any additional instructions given to you from your surgeon. If you or anyone in your household have experienced Covid symptoms in the past week, please notify your surgeon or the nurse liaison at the phone number below for possible testing. Telephone instructions given to DELVIN ESTRADA and asked if any additional questions and then verbalized understanding. Patient advised to call surgeon office or pre surgery nurse liaison [phone] if any additional questions.
[2023-01-08 12:43] VITALS: BP 148/81; PULSE 70; RESP 16; TEMP 36.4; O2SAT 100
[2023-01-08] MEDS: LACTATED RINGERS 1,000 ML 30 ML IV CONT (13:45)
--- NOTE | 2023-01-08 13:54 | WPDANESEPPF ---
Anes - Initial Pre Proc Eval Procedure: Operation Date: 01/08/23 14:30 Proposed Procedures p Excision Back Mass, Excision Back Skin Lesion - Jorge Luis Rocha DO Date/Time: 01/08/23 13:54 Surgeon: Jorge Luis Rocha DO Pre Op Diagnosis: back mass, back skin lesion Patient Data Age: 57 Gender: F Height: 1.75 m Weight: 113.4 kg Last Vital Signs Temp 36.4 C 01/08/23 12:43 Pulse 70 01/08/23 12:43 Resp 16 01/08/23 12:43 BP 148/81 H 01/08/23 12:43 Pulse Ox 100 01/08/23 12:43 O2 Del Method Room Air 01/08/23 12:43 Allergies Allergy/AdvReac Type Severity Reaction Status Date / Time amoxicillin Allergy Severe Hives Verified 12/28/22 10:02 Penicillins Allergy Severe Hives Verified 12/28/22 10:02 tramadol AdvReac Nausea Verified 12/28/22 10:02 Home Medications Medication Instructions Recorded Confirmed Type cyanocobalamin (vitamin B-12) 1,000 mcg PO DAILY 05/05/20 12/28/22 History 1,000 mcg capsule cholecalciferol (vitamin D3) 125 1,000 unit PO DAILY 04/25/21 12/28/22 History mcg (5,000 unit) tablet zinc 50 mg tablet 50 mg PO DAILY 04/25/21 12/28/22 History elderberry fruit 200 mg capsule 200 mg PO DAILY 11/17/21 12/28/22 History multivitamin 1 tablet PO DAILY 11/17/21 12/28/22 History losartan 100 mg tablet 100 mg PO DAILY #90 tabs 08/15/22 12/28/22 Rx albuterol sulfate 90 mcg/actuation 1 puff inhalation Q4H PRN 09/06/22 12/28/22 Rx aerosol inhaler (ProAir HFA) Shortness Of Breath #8.5 grams aspirin 81 mg capsule 81 mg PO DAILY 09/20/22 12/28/22 History meloxicam 7.5 mg tablet 7.5 mg PO DAILY #30 tabs 11/08/22 12/28/22 Rx metoprolol tartrate 25 mg tablet 25 mg PO DAILY #30 tabs 12/25/22 12/28/22 Rx cyclobenzaprine 10 mg tablet 10 mg PO PRN PRN muscle spasm 12/28/22 12/28/22 History Patient hx anesthesia problems: none Family hx anesthesia problems: other (slow to awaken) Results Review: All pre-operative results and documents have been reviewed as part of the pre-operative evaluation. [facility] Past Medical History Medical History Abnormal digestive system diagnostic imaging Acquired cavovarus deformity of both feet Acute diarrhea Arthritis Asthma Back skin lesion Bone tumor Removed 1977 Bronchitis Cholecystitis Contracture of left Achilles tendon COVID-05 August 2021 Elevated LFTs Fecal incontinence Fractures Gallbladder attack Hematochezia Hyperglycemia Hypertension Medial meniscus tear Migraine Morbid obesity with BMI of 40.0-44.9, adult Non-specific colitis Pneumonia Post-menopausal Screening mammogram, encounter for Sludge in gallbladder Tear meniscus knee Vision changes Vitamin D deficiency Surgical History Surgical History H/O section 1990 History of ankle surgery 2014 History of hip surgery Left GASPER 11/29/[address] Okeefe History of knee surgery 2019 History of tubal ligation 1994 Hx laparoscopic cholecystectomy 05/02/21 Laparoscopic Cholecystectomy with intraoperative cholangiogram S/P lumpectomy of breast 1999 left breast S/P removal of right ovary 2016 Family History Family History Sibling Hypertension Father Hypertension Autonomic neuropathy due to disorder of immune function Sibling Hypertension Diabetes mellitus Mother Patient's mother is in good health Grandparent Malignant neoplasm of prostate Grandparent Cerebrovascular accident Uterine cancer Other Family history of arthritis Family history of malignant neoplasm Social History Social History Smoking packs per day: 1 Smoking cigarettes per day: 20.0 Years smoked: 5 Smoking pack-years: 5.00 Smoking status: Former smoker Tobacco type: cigarettes Smoking end date: 09/17/98 Additional smoking asses
--- NOTE | 2023-01-08 14:23 | WPDHPUPDATE1 ---
History and Physical Update Update Date/Time: 01/08/23 14:23 History and Physical has been reviewed, including an updated exam of the patient. There are NO changes in the patient's condition. Risks, benefits, and alternatives have been discussed and questions answered. Patient agrees to proceed with procedure.
[2023-01-08] MEDS: LIDO 1%/EPINEPHRINE 1:100,000 50 ML VIAL 10 ML INFILTRATE (14:55)
--- NOTE | 2023-01-08 15:18 | W.PM.PROC2 ---
Procedure Note - Detailed Date of Procedure 01/08/23 Pre-op Diagnosis back mass, back skin lesion Post-op Diagnosis Same Procedure Performed 1. Excision of 2 cm back mass 2. Excision of 1 cm back skin lesion Surgeon Jorge Luis Rocha, DO Anesthesia MAC and Local (1% lidocaine with epinephrine) Indications This is a 57-year-old woman who presented with to different areas on her back that were causing her problems. There was a subcutaneous mass within the left mid back that was causing some tenderness and becoming larger. There was also a skin lesion along the left lateral mid back that appeared to be a subcutaneous cyst. Discussions were made with the patient about treatment options and decision was made to proceed with excision of the back mass and back skin lesion. Findings The 2 cm subcutaneous back mass was completely excised and appeared to be likely a lipoma. The 1 cm back skin lesion was excised appeared likely to be a subcutaneous inclusion cyst. Description of Procedure Procedure as well as risks, benefits, and alternatives were discussed with the patient. Written consent was obtained and placed in chart prior to procedure. Patient was brought back to surgical suite. She was placed in right lateral decubitus position. Time-out was done to confirm patient and procedure. IV sedation was then administered by the anesthesia department. Her back area was prepped and draped in sterile fashion using chlorhexidine prep. 1% lidocaine with epinephrine was infiltrated over both of the areas. A 1 cm elliptical incision was made over the left lateral back skin lesion using a 15 blade scalpel. The skin lesion was completely excised using a 15 blade scalpel. Electrocautery was then used for hemostasis. The skin edges were then reapproximated using 3-0 nylon simple interrupted sutures. A 2-3 cm transverse incision was then made over the mid back mass using a 15 blade scalpel. Electrocautery was used for hemostasis and for dissection through the subcutaneous tissue. The mass was identified and carefully dissected free from the surrounding subcu attachments using electrocautery. The mass was completely excised and sent to the lab for pathology. The wound bed was then inspected. No other masses were identified. Hemostasis appeared adequate. The skin edges were then reapproximated using 3-0 nylon simple interrupted sutures. Bacitracin ointment was then applied over each of the incisions followed by 4 x 4 gauze and tape. The patient was then awakened from anesthesia transferred to recovery. Estimated Blood Loss 5 Pathology Yes (1 cm left back skin lesion and 2 cm left back mass) Complications No immediate complications Condition Stable Disposition Same day [facility] Billing Surgery - Charge Forward: Surgery Billing
[2023-01-08] MEDS: BACITRACIN OINTMENT 15 GM TUBE 1 APPLIC TOPICAL (15:19)
[2023-01-08 15:30] VITALS: BP 154/80; PULSE 70; RESP 16; O2SAT 100
[2023-01-08 15:55] VITALS: BP 142/77; PULSE 66; RESP 12; O2SAT 98
[2023-01-08 16:25] VITALS: BP 150/84; PULSE 57; RESP 12
== END 2023-01-08 17:00 | disposition home or self-care (01) ==
PROVIDERS: PCP Internal Medicine; Visit Provider Surgery
PROC: (CPT 21930; principal; 2023-01-08 14:30)
DX: D17.1 Benign lipomatous neoplasm of skin and subcutaneous tissue of trunk (principal); L72.12 Trichodermal cyst; I10 Essential (primary) hypertension; J45.909 Unspecified asthma, uncomplicated; E55.9 Vitamin D deficiency, unspecified; Z87.891 Personal history of nicotine dependence; E66.9 Obesity, unspecified; Z68.36 Body mass index [BMI] 36.0-36.9, adult; Z79.51 Long term (current) use of inhaled steroids; Z79.82 Long term (current) use of aspirin
CPT/HCPCS: 21930; 11401; 88304; A9270; J2250; J2704; J3010; J7120

== ENCOUNTER 2023-02-28 17:59 | Outpatient (CLI) | payer BC, SELFPAY ==
--- NOTE | 2023-02-28 09:01 | ECHO_ITS ---
Patient Info Name: Odalys Barnhart Age: 57 years : 1965 Gender: Female Accession #: $[id number]$ Ht: 69 in Wt: 250 lbs BSA: 2.40 m2 HR: 63 bpm BP: 143 / 89 mmHg Heart Rhythm: Sinus Rhythm Exam Date: 02/28/2023 8:25 AM Exam Location: [facility] Pulmonary Coin Machine Servicer Repairer: Cass Nielsen RDCS Referring Physician: ANGIE; Exam Type: CA echo doppler color flow Study Info Indications R00.1 - Bradycardia, unspecified R00.2 - Palpitations Complete two-dimensional, color flow and Doppler transthoracic echocardiogram is performed. Summary 1. Complete two-dimensional, color flow and Doppler transthoracic echocardiogram is performed. 2. Left ventricular chamber dimension is normal. 3. Left ventricular systolic function is normal, estimated at 60-65%. 4. The left ventricular diastolic function is grade II diastolic dysfunction. 5. E/e' 11 is mildly elevated. Left Ventricle E/e' 11 is mildly elevated. Left ventricular chamber dimension is normal. Left ventricular systolic function is normal, estimated at 60-65%. The left ventricular diastolic function is grade II diastolic dysfunction. Right Ventricle Right ventricular systolic function is normal and with normal TAPSE 1.7 cm. Right ventricular chamber dimension is normal. Left Atria Left atrial chamber dimension is normal. Right Atria Right atrial chamber dimension is normal. Aortic Valve The aortic valve is trileaflet. There is no aortic valve stenosis. There is no aortic valve regurgitation. Pulmonic Valve There is no pulmonic regurgitation. Mitral Valve There is no mitral valve stenosis. There is no mitral valve regurgitation. Tricuspid Valve There is no tricuspid valve regurgitation. Pericardium/Pleural There is no pericardial effusion. Inferior Vena Cava Normal inferior vena cava with >50% collapse upon inspiration consistent with normal right atrial pressure, 5 mmHg. Aorta The aortic root size at the sinus of Valsalva is normal. Left Ventricular Outflow Tract Name Value Normal LVOT 2D LVOT Diameter 2.0 cm LVOT Doppler LVOT Peak Gradient 3 mmHg LVOT Mean Gradient 1 mmHg LVOT VTI 22 cm LVOT VTI/AV VTI Ratio 0.7 LVOT Stroke Volume 72 ml LVOT CO 4.3 l/min LVOT CI 1.8 l/min/m2 Pulmonic Valve Name Value Normal RVOT Doppler RVOT Peak Gradient 2 mmHg PV Doppler PV Peak Gradient 2 mmHg Mitral Valve Name Value Normal MV Doppler MV Peak Gradient 5 m
--- NOTE | 2023-03-01 12:59 | PCCARD ---
Paper documentation exists on this patient due to [employer] System downtime on 02/28/23 from 0030 to []1930 .
--- NOTE | 2023-03-01 13:07 | PCCARD ---
Paper documentation exists on this patient due to [employer] System downtime on 02/28/23 from 0030 to [] 1930.
== END 2023-02-28 18:00 | disposition home or self-care (01) ==
LOC: ANHCARD 18:02
PROVIDERS: PCP Internal Medicine; Visit Provider Nurse Practitioner
DX: R00.1 Bradycardia, unspecified (principal)
CPT/HCPCS: 93306

== ENCOUNTER → 2023-03-08 10:31 | Outpatient (CLI) | payer BC, SELFPAY ==
--- NOTE | ~2023-03-08 | XR_ITS ---
Right Hand Technique: PA, oblique, and lateral views were obtained. Clinical History: Pain Findings: No acute fracture or dislocation is seen. There is severe degenerative change at the first carpometacarpal joint. There are scattered mild degenerative changes in the DIP joints of the hand. S oft tissues are unremarkable. Impression: Severe degenerative change of the first CMC joint. Mild scattered degenerative changes of the DIP joints. Reviewed, dictated and finalized at location M. Impression: Severe degenerative change of the first CMC joint. Mild scattered degenerative changes of the DIP joints.
== END ==
PROVIDERS: PCP Internal Medicine; Visit Provider Nurse Practitioner
DX: M19.041 Primary osteoarthritis, right hand (principal)
CPT/HCPCS: 73130

== ENCOUNTER → 2023-10-19 10:01 | Outpatient (CLI) | payer BC, SELFPAY ==
--- NOTE | ~2023-10-19 | US_ITS ---
EXAMINATION: US soft tissue UE RT DATE: 10/19/2023 10:14 INDICATION: Lump at the posterior right shoulder TECHNIQUE: Multiple grayscale and Doppler ultrasound images of the region of concern posterior to the right shoulder were obtained. COMPARISON: None FINDINGS: There is a 4.1 x 4.0 x 1.7 cm subcutaneous mass at the region of concern with lobular margins which i s otherwise nearly indistinguishable and echogenicity and echotexture from the surrounding subcutaneo us fat. IMPRESSION: 1. 4.1 x 4.0 x 1.7 cm subcutaneous mass at the region of concern with appearance most consistent with and statistically most likely to represent a lipoma. Reviewed, dictated and finalized at location A. SUPERVISOR IMPRESSION: 1. 4.1 x 4.0 x 1.7 cm subcutaneous mass at the region of concern with appearanc e most consistent with and statistically most likely to represent a lipoma.
== END ==
PROVIDERS: PCP Nurse Practitioner; Visit Provider Nurse Practitioner
DX: R22.31 Localized swelling, mass and lump, right upper limb (principal)
CPT/HCPCS: 76882

== ENCOUNTER 2023-11-26 15:55 | Outpatient (CLI) | payer BC, SELFPAY ==
--- NOTE | ~2023-11-26 | MM_ITS ---
EXAMINATION: MM screening rod BI w veena HISTORY: Screening mammogram TECHNIQUE: Craniocaudal and mediolateral oblique 3-D tomosynthesis images were obtained and synthetic 2-D images were generated. CAD analysis was submitted and interpreted. COMPARISON: 10/04/2022, 07/12/2021 bilateral screening mammogram examinations BREAST PARENCHYMAL COMPOSITION: There are scattered areas of fibroglandular density. FINDINGS: There is no evidence of suspicious mass, calcification, or architectural distortion to sugg est malignancy in either breast. There has been no suspicious interval change. IMPRESSION: 1. No mammographic evidence of malignancy. 2. Recommend routine screening mammography in one year. BI-RADS Category 1: Negative Reviewed, dictated and finalized at location A.
== END 2023-11-26 15:56 ==
PROVIDERS: PCP Internal Medicine; Visit Provider Obstetrics & Gynecology
DX: Z12.31 Encounter for screening mammogram for malignant neoplasm of breast (principal)
CPT/HCPCS: 77063; 77067

== ENCOUNTER 2023-12-10 00:32 | Day surgery (SDC) | payer BC, SELFPAY ==
[2023-12-03 12:33] VITALS: BMI 36.9
--- NOTE | 2023-12-03 12:37 | PC.NURSE ---
Report to the Outpatient Waiting Room, entrance under the green pavilion located off [facility], at time 0700 on date 12/10/23. Planned Procedure Time: 0900. Time changes happen often and if your time is changed the preop area will call you the afternoon before. - You and your visitor will be asked to self-screen and do not enter if you have any COVID symptoms. - A mask is optional within the hospital at this time. Patients may have clear liquids (water, carbonated beverages, clear teas, apple juice) until 3 hours prior to surgery with a maximum of 20 ounces. - No food from midnight until time of surgery Take the following medications with a SIP of water the morning of surgery: INHALER IF NEEDED DO NOT STOP ANY OF YOUR OTHER PRESCRIPTION MEDICATIONS PRIOR TO SURGERY ?EXCEPT THE FOLLOWING Medications to discontinue per physician: VITAMINS/SUPPLEMENTS Date to take last dose: 12/06/23 Please no make-up, nail kazakh, hairspray, perfume, deodorant, or body powder the day of surgery. No jewelry (including any body piercings) or valuables the day of surgery, leave them at home. Please take a shower or bath the night before, or the morning of, surgery with an antibacterial soap. Wear comfortable, loose fitting clothing. - Jewelry must be removed prior to entering the operating room. Rings and piercings that are not removed may be cut off. - The hospital will not accept responsibility for valuables. - Please leave all valuables, including medications, at home the day of surgery. If you are going home after surgery, a licensed service parts driver must drive you home. - NO public transportation without another adult if you receive anesthesia. - We recommend that an adult stay with you for 24 hours following discharge. - We also recommend that you do not drive, make important decision, drink alcoholic beverages, or take any drugs that were not prescribed by your health care provider for at least 24 hours after your discharge time. Follow any additional instructions given to you from your surgeon. If you or anyone in your household have experienced Covid symptoms in the past week, please notify your surgeon or the nurse liaison at the phone number below for possible testing. Telephone instructions given to MARIA LUISA HARGROVE and asked if any additional questions and then verbalized understanding. Patient advised to call surgeon office or pre surgery nurse liaison [phone] if any additional questions.
[2023-12-10 07:36] VITALS: BP 149/91; PULSE 73; RESP 16; TEMP 36.4; O2SAT 98; BMI 37.9
[2023-12-10] MEDS: LACTATED RINGERS 1,000 ML 30 ML IV CONT (07:45)
--- NOTE | 2023-12-10 08:29 | WPDHPUPDATE1 ---
History and Physical Update Update Date/Time: 12/10/23 08:29 History and Physical has been reviewed, including an updated exam of the patient. There are NO changes in the patient's condition. Risks, benefits, and alternatives have been discussed and questions answered. Patient agrees to proceed with procedure.
--- NOTE | 2023-12-10 08:29 | PM.IMHP ---
H&P: HPI History of Present Illness Date/Time: 12/10/23 08:29 Chief Complaint: Right upper extremity mass Narrative: This is a 58-year-old woman who presents with a right shoulder mass that has been present for several years. This has gotten larger over time. It does cause some discomfort as well. She now presents for excision. She reports no changes since last seen in the office. Review of Systems Review of Systems: All systems reviewed & are unremarkable except as noted in HPI and below Constitutional: Constitutional: Denies chills, Denies fever(s), Denies headache(s) and Denies weight loss Eyes: Eyes: Denies change in vision ENT: Denies dizziness, Denies headache(s), Denies neck mass and Denies throat swelling Cardiovascular: Cardiovascular: Denies chest pain, Denies lightheadedness and Denies dyspnea Respiratory: Respiratory: Denies cough, Denies dyspnea and Denies wheezing Gastrointestinal: Gastrointestinal: Denies abdominal pain, Denies change in bowel habits, Denies nausea and Denies vomiting Genitourinary: Genitourinary: Denies hematuria and Denies dysuria Musculoskeletal: Musculoskeletal: Reports as per HPI Integumentary/Breasts: Skin/Breast: Reports as per HPI Neurologic: Denies dizziness and Denies headache(s) Allergic/Immunologic: Allergic/Immunologic: Denies throat swelling and Denies wheezing PMFSH Past Medical History Medical History Abnormal digestive system diagnostic imaging Acquired cavovarus deformity of both feet Acute diarrhea Arthritis Asthma Back skin lesion Bone tumor Removed 1977 Bronchitis Cholecystitis Contracture of left Achilles tendon COVID-05 August 2021 Degenerative joint disease of knee Elevated LFTs Fecal incontinence Fractures Gallbladder attack Hematochezia Hyperglycemia Hypertension Left knee DJD Medial meniscus tear Migraine Morbid obesity with BMI of 40.0-44.9, adult Non-specific colitis Pneumonia Post-menopausal Screening mammogram, encounter for Sludge in gallbladder Tear meniscus knee Vision changes Vitamin D deficiency Surgical History Surgical History H/O section 1990 H/O excision of mass s/p excision of 2 cm back mass and excision 1 cm back skin lesion 01/08/23 H/O removal of cyst History of ankle surgery 2015 History of hip surgery Left GASPER 11/29/[address] Okeefe History of hysteroscopy (02/22/23) Hysteroscopy Hysteroscopic polypectomy (x3) History of knee surgery 2019 History of tubal ligation 1994 Hx laparoscopic cholecystectomy 05/02/21 Laparoscopic Cholecystectomy with intraoperative cholangiogram S/P lumpectomy of breast 2000 left breast S/P removal of right ovary 2016 Family History Family History Sibling Hypertension Father Hypertension Autonomic neuropathy due to disorder of immune function Sibling Hypertension Diabetes mellitus Mother Patient's mother is in good health Grandparent Malignant neoplasm of prostate Grandparent Cerebrovascular accident Uterine cancer Other Family history of arthritis Family history of malignant neoplasm Social History Social History Social History: caffeine daily Smoking packs per day: 1.5 Smoking cigarettes per day: 30.0 Years smoked: 10 Smoking pack-years: 15.00 Smoking status: Former smoker Tobacco type: cigarettes Second hand tobacco smoke exposure: No Smoking end date: 09/17/96 Additional smoking assessment comments: DENIES ANY FORM OF TOBACCO USE Alcohol intake: current Alcohol use details: RARE Substance use: never Substance use type: does not use Last use: 25 YRS AGO Do You Feel Safe in your Home?: Yes Lack of Transportation: No Lack of Food: Never True Current Housing: I Have Juan Jose
--- NOTE | 2023-12-10 08:37 | WPDANESEPPF ---
Anes - Initial Pre Proc Eval Procedure: Operation Date: 12/10/23 09:00 Proposed Procedures p Excision of Right Upper Extremity Mass - Jorge Luis Rocha DO Date/Time: 12/10/23 08:37 Surgeon: Jorge Luis Rocha DO Pre Op Diagnosis: right upper 4cm extremity mass Patient Data Age: 58 Gender: F Height: 1.75 m Weight: 116.6 kg Last Vital Signs Temp 97.5 F L 12/10/23 07:36 Pulse 73 12/10/23 07:36 Resp 16 12/10/23 07:36 BP 149/91 H 12/10/23 07:36 Pulse Ox 98 12/10/23 07:36 O2 Del Method Room Air 12/10/23 07:36 Allergies Allergy/AdvReac Type Severity Reaction Status Date / Time amoxicillin Allergy Severe Hives Verified 12/10/23 07:27 Penicillins Allergy Severe Hives Verified 12/10/23 07:27 tramadol AdvReac Nausea Verified 12/10/23 07:27 Home Medications Medication Instructions Recorded Confirmed Type cyanocobalamin (vitamin B-12) 1,000 mcg PO DAILY 05/05/20 12/03/23 History 1,000 mcg capsule cholecalciferol (vitamin D3) 125 1,000 unit PO DAILY 04/25/21 12/03/23 History mcg (5,000 unit) tablet zinc 50 mg tablet 50 mg PO DAILY 04/25/21 12/03/23 History elderberry fruit 200 mg capsule 200 mg PO DAILY 11/17/21 12/03/23 History multivitamin 1 tablet PO DAILY 11/17/21 12/03/23 History albuterol sulfate 90 mcg/actuation 1 puff inhalation Q4H PRN 09/06/22 12/03/23 Rx aerosol inhaler (ProAir HFA) Shortness Of Breath #8.5 grams aspirin 81 mg capsule 81 mg PO DAILY 09/20/22 12/03/23 History ibuprofen 800 mg tablet 800 mg PO TID #20 tabs 02/22/23 12/03/23 Rx cyclobenzaprine 10 mg tablet 10 mg PO BID PRN muscle spasm #30 03/08/23 12/03/23 Rx tabs meloxicam 15 mg tablet 15 mg PO DAILY #30 tabs 03/08/23 12/03/23 Rx losartan 100 mg tablet 100 mg PO DAILY #10 tabs 05/16/23 12/03/23 Rx ascorbate calcium (vitamin C) 500 500 mg PO DAILY 10/03/23 12/03/23 History mg tablet Patient hx anesthesia problems: none Family hx anesthesia problems: none Results Review: All pre-operative results and documents have been reviewed as part of the pre-operative evaluation. [facility] Past Medical History Medical History Abnormal digestive system diagnostic imaging Acquired cavovarus deformity of both feet Acute diarrhea Arthritis Asthma Back skin lesion Bone tumor Removed 1977 Bronchitis Cholecystitis Contracture of left Achilles tendon COVID-05 August 2021 Degenerative joint disease of knee Elevated LFTs Fecal incontinence Fractures Gallbladder attack Hematochezia Hyperglycemia Hypertension Left knee DJD Medial meniscus tear Migraine Morbid obesity with BMI of 40.0-44.9, adult Non-specific colitis Pneumonia Post-menopausal Screening mammogram, encounter for Sludge in gallbladder Tear meniscus knee Vision changes Vitamin D deficiency Surgical History Surgical History H/O section 1990 H/O excision of mass s/p excision of 2 cm back mass and excision 1 cm back skin lesion 01/08/23 H/O removal of cyst History of ankle surgery 2015 History of hip surgery Left GASPER 11/29/[address] Okeefe History of hysteroscopy (02/22/23) Hysteroscopy Hysteroscopic polypectomy (x3) History of knee surgery 2019 History of tubal ligation 1994 Hx laparoscopic cholecystectomy 05/02/21 Laparoscopic Cholecystectomy with intraoperative cholangiogram S/P lumpectomy of breast 1999 left breast S/P removal of right ovary 2016 Family History Family History Sibling Hypertension Father Hypertension Autonomic neuropathy due to disorder of immune function Sibling Hypertension Diabetes mellitus Mother Patient's mother is in good health Grandparent Malignant neoplasm of prostate Grandparent Cerebrovascular accident Uterine cancer Other Family history of arthritis Family history of malignant neoplasm
[2023-12-10] MEDS: ceFAZolin 2 GM/D5W 50 ML 2 GM/50 ML BAG IVPB (08:46)
[2023-12-10] MEDS: LIDO 1%/EPINEPHRINE 1:100,000 20 ML VIAL 50 ML INFILTRATE (09:13)
--- NOTE | 2023-12-10 09:25 | P.OP_ITS ---
Procedure Note - Detailed Date of Procedure 12/10/23 Pre-op Diagnosis Right upper extremity mass Post-op Diagnosis Same Procedure Performed Excision 4 cm right upper extremity mass Surgeon Jorge Luis Rocha, DO Anesthesia MAC and Local (1% lidocaine with epinephrine) Indications This is a 58-year-old woman who presented with a mass in her right shoulder that had present for least a year and was causing some discomfort was pressed on. She had an ultrasound done as an outpatient which showed evidence of a subc utaneous mass consistent with a lipoma. Discussions were made with the patient about treatment options and decision was made to proceed excision of the 4 cm right upper extremity mass. Findings Excision of 4 cm right upper extremity mass was performed. The mass appeared to be a lipoma within the subcutaneous tissue. The mass was completely excised and sent to the lab for pathology. No other abnormalities were noted. Description of Procedure Procedure as well as risks, benefits, and alternatives were discussed with patient. Written consent was obtained and placed in chart prior to procedure. Patient was brought back to surgical suite. She was placed supine on operating table. Time-out was done to confirm patient and procedure. IV sedation was administered by anesthesia department. She was then repositioned in the left lateral decubitus position. Her right posterior shoulder was prepped and draped in sterile fashion using chlorhexidine prep. 1% lidocaine with epinephrine was infiltrated locally around the mass. A 4 cm oblique incision was then made directly over the mass using a 15 blade scalpel. Electrocautery was used for hemostasis and for dissection through the subcutaneous tissue. The mass was identified and carefully dissected free using electrocautery. The mass was completely excised and sent to the lab for pathology. The wound bed was then inspected. No other abnormalities were noted. Hemostasis appeared adequate. The skin edges were then reapproximated using 3-0 nylon vertical mattress interrupted sutures. Bacitracin ointment was applied 4 Medipore tape. The patient was then awakened from anesthesia and transferred to recovery. Estimated Blood Loss 2 Pathology Yes (4 cm right upper extremity mass) Complications No immediate complications Condition Stable Disposition Same day [facility] Billing Surgery - Charge Forward: Surgery Billing
[2023-12-10 09:34] VITALS: BP 117/68; PULSE 69; RESP 16; O2SAT 100
[2023-12-10 10:00] VITALS: BP 146/81; PULSE 54; RESP 16
[2023-12-10 10:25] VITALS: BP 109/68; PULSE 66; RESP 16
== END 2023-12-10 10:31 | disposition home or self-care (01) ==
PROVIDERS: PCP Internal Medicine; Visit Provider Surgery
PROC: (CPT 23071; principal; 2023-12-10 09:00)
DX: D17.21 Benign lipomatous neoplasm of skin and subcutaneous tissue of right arm (principal); I10 Essential (primary) hypertension; R73.9 Hyperglycemia, unspecified; E55.9 Vitamin D deficiency, unspecified; J45.909 Unspecified asthma, uncomplicated; R15.9 Full incontinence of feces; E66.9 Obesity, unspecified; Z68.38 Body mass index [BMI] 38.0-38.9, adult; Z79.51 Long term (current) use of inhaled steroids; Z79.82 Long term (current) use of aspirin; Z79.1 Long term (current) use of non-steroidal anti-inflammatories (NSAID); Z98.890 Other specified postprocedural states; Z90.49 Acquired absence of other specified parts of digestive tract; Z87.891 Personal history of nicotine dependence; Z85.830 Personal history of malignant neoplasm of bone; Z87.2 Personal history of diseases of the skin and subcutaneous tissue; Z80.42 Family history of malignant neoplasm of prostate; Z80.49 Family history of malignant neoplasm of other genital organs; Z82.49 Family history of ischemic heart disease and other diseases of the circulatory system
CPT/HCPCS: 23071; 88304; A9270; J0690; J1100; J2250; J2405; J2704; J3010; J7120

== ENCOUNTER 2024-07-04 11:49 | Outpatient (CLI) | payer BC, SELFPAY ==
[2024-07-04 18:01] LABS: Basophils Absolute Auto 0.1 K/mm3 (0.0-0.1); Basophils Percent Auto 1.3 % (0.2-1.2); Eosinophils Absolute Auto 0.2 K/mm3 (0-0.3); Eosinophils Percent Auto 3.5 % (0-4.4); Hematocrit 45.3 % (37.0-47.0); Hemoglobin 14.5 g/dL (12.0-15.0); Immature Granulocyte Absolute 0.01 K/mm3 (0.00-0.031); Immature Granulocyte Percent A 0.2 % (0-0.5); Lymphocytes Absolute Auto 2.22 K/mm3 (0.9-3.2); Lymphocytes Percent Auto 35.7 % (18.3-44.2); Mean Corpuscular Hemoglobin 30.5 pg (26-34); Mean Corpuscular Volume 95.2 fl (80-100); Mean Platelet Volume 10.9 fl (7.4-10.4); Monocytes Absolute Auto 0.6 K/mm3 (0.1-0.6); Neutrophils Absolute Auto 3.1 K/mm3 (1.3-6.7); Neutrophils Percent Auto 50.3 % (45.5-73.1); Platelet Count Result 224 k/mm3 (150-375); Red Blood Count 4.76 M/mm3 (4.2-5.4); Red Cell Distribution Width 12.4 % (11.5-14.5); White Blood Count 6.2 K/mm3 (4.5-10.0)
[2024-07-04 18:10] LABS: Alanine Aminotransferase 24 U/L (6-35); Albumin Level 3.9 g/dL (3.5-5.1); Alkaline Phosphatase 93 U/L (38-126); Anion Gap 4 mmol/L (4-12); Aspartate Amino Transferase 36 U/L (14-36); Bilirubin,Total 0.4 mg/dL (0.2-1.3); Blood Urea Nitrogen 11 mg/dL (7-17); Calcium 9.3 mg/dL (8.4-10.2); Carbon Dioxide 30 mmol/L (22-30); Chloride 105 mmol/L (98-107); Estimated Glomerular Filt Rate > 60; Glucose 80 mg/dL (65-110); Potassium 4.6 mmol/L (3.4-5.0); Sodium 139 mmol/L (137-145)
[2024-07-04 18:32] LABS: Vitamin D 25 Hydroxy 85.2 ng/mL
== END 2024-07-04 11:50 | disposition home or self-care (01) ==
LOC: ANHGOSHLAB 11:50
PROVIDERS: PCP Internal Medicine; Visit Provider Nurse Practitioner
DX: Z13.228 Encounter for screening for other metabolic disorders (principal); E55.9 Vitamin D deficiency, unspecified
CPT/HCPCS: 36415; 80053; 82306; 85025

== ENCOUNTER 2024-07-24 10:56 | Outpatient (CLI) | payer BC, SELFPAY ==
--- NOTE | 2024-07-24 11:04 | ECG_ITS ---
Test Date: 2024-07-24 11:24:03 Measurements Intervals [place] Rate: 69 P: 24 GA: 173 QRS: 52 QRSD: 101 T: 17 QT: 405 QTc: 436 Interpretive Statements SINUS RHYTHM LOW QRS VOLTAGE IN PRECORDIAL LEADS INCOMPLETE RIGHT BUNDLE BRANCH BLOCK MINIMAL Q WAVES- INFERIOR LEADS BORDERLINE ECG No previous ECG available for comparison Electronically Signed On 07-24-2024 11:56:50 HUMANITIES COORDINATOR by Jp Wolf D.O.
[2024-07-24 11:16] LABS: Basophils Absolute Auto 0.1 K/mm3 (0.0-0.1); Eosinophils Absolute Auto 0.2 K/mm3 (0-0.3); Hematocrit 43.2 % (37.0-47.0); Hemoglobin 14.6 g/dL (12.0-15.0); Immature Granulocyte Absolute 0.02 K/mm3 (0.00-0.031); Immature Granulocyte Percent A 0.4 % (0-0.5); Lymphocytes Absolute Auto 1.81 K/mm3 (0.9-3.2); Lymphocytes Percent Auto 34.5 % (18.3-44.2); Mean Corpuscular HGB Conc 33.8 g/dl (32-36); Mean Corpuscular Hemoglobin 31.7 pg (26-34); Mean Corpuscular Volume 93.7 fl (80-100); Mean Platelet Volume 10.2 fl (7.4-10.4); Monocytes Absolute Auto 0.5 K/mm3 (0.1-0.6); Monocytes Percent Auto 8.8 % (2.6-8.5); Neutrophils Absolute Auto 2.7 K/mm3 (1.3-6.7); Neutrophils Percent Auto 51.3 % (45.5-73.1); Platelet Count Result 193 k/mm3 (150-375); Red Blood Count 4.61 M/mm3 (4.2-5.4); Red Cell Distribution Width 12.4 % (11.5-14.5); White Blood Count 5.2 K/mm3 (4.5-10.0)
[2024-07-24 11:18] LABS: Add Urine Microscopic? NO; Appearance Urine Clear (Clear); Bilirubin Urine Negative (Negative); Blood Urine Negative (Negative); Color Urine Yellow (Yellow); Glucose Urine UA Negative (Negative); Ketones Urine Negative (Negative); Leukocyte Esterase Ur Negative LEU/UL (Negative); Nitrate Urine Negative (Negative); Protein Urine Negative (Negative); Specific Grav Ur 1.008 (1.001-1.035); Urobilinogen Urine 0.2 mg/dL (<2.0)
[2024-07-24 11:29] LABS: Anion Gap 7 mmol/L (4-12); Blood Urea Nitrogen 16 mg/dL (7-17); Carbon Dioxide 28 mmol/L (22-30); Chloride 104 mmol/L (98-107); Estimated Glomerular Filt Rate > 60; Glucose 100 mg/dL (65-110); Potassium 4.4 mmol/L (3.4-5.0); Sodium 139 mmol/L (137-145)
== END 2024-07-24 10:57 | disposition home or self-care (01) ==
LOC: ANHLAB 10:57
PROVIDERS: PCP Internal Medicine; Visit Provider Nurse Practitioner Family
DX: R73.09 Other abnormal glucose (principal); I10 Essential (primary) hypertension; E55.9 Vitamin D deficiency, unspecified; R94.31 Abnormal electrocardiogram [ECG] [EKG]; R53.83 Other fatigue
CPT/HCPCS: 36415; 80048; 81003; 85025; 93005

== ENCOUNTER 2024-08-21 11:23 | Outpatient (CLI) | payer BC, SELFPAY ==
--- NOTE | ~2024-08-21 | XR_ITS ---
EXAMINATION: XR chest 2V 08/21/2024 11:30 INDICATION: Shortness of breath and congestion PROCEDURE: 2 view chest COMPARISON: No prior studies for comparison. FINDINGS: The lungs are clear. The cardiomediastinal silhouette is within normal limits. There are no pleural effusions. There is no pneumothorax suspected. IMPRESSION: 1: NO ACUTE CARDIOPULMONARY DISEASE. Reviewed, dictated and finalized at location B. ING COACH
== END 2024-08-21 11:24 | disposition home or self-care (01) ==
PROVIDERS: PCP Internal Medicine; Visit Provider Internal Medicine
DX: R06.02 Shortness of breath (principal); R05.9 Cough, unspecified; R09.89 Other specified symptoms and signs involving the circulatory and respiratory systems; Z87.09 Personal history of other diseases of the respiratory system
CPT/HCPCS: 71046

== ENCOUNTER 2024-10-15 01:16 | Day surgery (SDC) | payer BC, SELFPAY ==
[2024-10-01 12:11] VITALS: BP 155/89; PULSE 66; RESP 16; TEMP 36.4; O2SAT 99
[2024-10-01 12:27] VITALS: BMI 37.6
--- NOTE | 2024-10-01 12:27 | PC.NURSE ---
Addendum entered by Porsha Diaz RN 10/01/24 12:38: PT aware to hold her Aspirin 7 days preop with other meds listed below JRRN Original Note: Report to the Outpatient Waiting Room, entrance under the green pavilion located off [facility], at time ___06:00am____ on date __10/15/24 . Planned Procedure Time: __07:30am .? Time changes happen often and if your time is changed the preop area will call you the afternoon before. - You and your visitor will be asked to self-screen and do not enter if you have any COVID symptoms. Please call surgeon if you need to reschedule. - A mask is optional within the hospital at this time. Patients may have clear liquids (water, carbonated beverages, clear teas, apple juice) until 3 hours prior to surgery with a maximum of 20 ounces. - No food from midnight until time of surgery and no smoking. This includes no chewing gum, candy or mints. (0430am) Take only the following medications with a SIP of water on the morning of surgery: ___Albuteral if needed DO NOT STOP ANY OF YOUR OTHER PRESCRIPTION MEDICATIONS PRIOR TO SURGERY EXCEPT THE FOLLOWING Medications to discontinue per physician ____Hold all vitamins and supplements, NSAIDS and any meds with aspirin in them for [address] Okeefe Date to take last dose_10/07/24 Please no make-up, nail pashto, hairspray, perfume, deodorant, or body powder the day of surgery.? No jewelry (including any body piercings) or valuables the day of surgery, leave them at home.? Please take a shower or bath the night before, or the morning of, surgery with an antibacterial soap.? Wear comfortable, loose fitting clothing.? Scrub per Dr Okeefe - Jewelry must be removed prior to entering the operating room.? Rings and piercings that are not removed may be cut off. - The hospital will not accept responsibility for valuables.? - Please leave all valuables, including medications, at home the day of surgery. If you are going home after surgery, a licensed ice delivery driver must drive you home.? - NO public transportation without another adult if you receive anesthesia. - We recommend that an adult stay with you for 24 hours following discharge. - We also recommend that you do not drive, make important decision, drink alcoholic beverages, or take any drugs that were not prescribed by your health care provider for at least 24 hours after your discharge time. Follow any additional instructions given to you from your surgeon. Telephone instructions given to ____Patient and asked if any additional questions and then verbalized understanding. Patient advised to call surgeon office or pre surgery nurse liaison [phone] if any additional questions.
[2024-10-15] VITALS (12 sets, daily range): BP systolic 122–168; BP diastolic 72–97; PULSE 82–110; RESP 10–20; TEMP 35.7–36.9; O2SAT 93–100
--- NOTE | ~2024-10-15 | XR_ITS ---
EXAMINATION: [id number] DATE: 10/15/2024 11:10 ELECTROLYSIS ENGINEER INDICATION: Postoperative evaluation TECHNIQUE: 2 views right knee FINDINGS: There is a right total knee arthroplasty in expected position. Subcutaneous gas with fluid and air in the joint detected, consistent with recent surgery. No evidence of periprosthetic fractur e. Components are in excellent alignment. IMPRESSION: Expected appearance of perioperative right total knee arthroplasty, as detailed above. Reviewed, dictated and finalized at location A. TROLYSIS ENGINEER
[2024-10-15] MEDS: LACTATED RINGERS 1,000 ML 30 ML IV CONT ×2 (06:55→10:16)
--- NOTE | 2024-10-15 07:06 | P.PNAN_ITS ---
Anes - Initial Pre Proc Eval Procedure: Operation Date: 10/15/24 07:30 Proposed Procedures p Right Total Knee Arthroplasty - Elijah Okeefe MD Date/Time: 10/15/24 07:06 Surgeon: Elijah Okeefe MD Pre Op Diagnosis: Right Knee O A Patient Data Age: 59 Gender: F Height: 1.75 m Weight: 115.6 kg Last Vital Signs Temp 36.4 C 10/01/24 12:11 Pulse 66 10/01/24 12:11 Resp 16 10/01/24 12:11 BP 155/89 H 10/01/24 12:11 Pulse Ox 99 10/01/24 12:11 O2 Del Method Room Air 10/01/24 12:11 Allergies Allergy/AdvReac Type Severity Reaction Status Date / Time amoxicillin Allergy Severe Hives Verified 10/15/24 06:39 Penicillins Allergy Severe Hives Verified 10/15/24 06:39 tramadol AdvReac Nausea Verified 10/15/24 06:39 Home Medications ?Medication ?Instructions ?Recorded ?Confirmed ?Type cyanocobalamin (vitamin B-12) 1,000 mcg PO DAILY 05/05/20 10/15/24 History 1,000 mcg capsule cholecalciferol (vitamin D3) 125 1,000 unit PO DAILY 04/25/21 10/15/24 History mcg (5,000 unit) tablet zinc 50 mg tablet 50 mg PO DAILY 04/25/21 10/15/24 History multivitamin 1 tablet PO DAILY 11/17/21 10/15/24 History aspirin 81 mg capsule 81 mg PO DAILY 09/20/22 10/15/24 History ibuprofen 800 mg tablet 800 mg PO TID #20 tabs 02/22/23 10/15/24 Rx ascorbate calcium (vitamin C) 500 500 mg PO DAILY 10/03/23 10/15/24 History mg tablet fluticasone propionate 50 1 spray intranasal DAILY PRN nasal 01/17/24 10/15/24 Rx mcg/actuation nasal congestion #16 grams spray,suspension (Flonase Allergy Relief) albuterol sulfate 90 mcg/actuation 1 puff inhalation Q4H PRN 07/04/24 10/14/24 Rx aerosol inhaler Shortness Of Breath #8.5 grams cyclobenzaprine 10 mg tablet 10 mg PO BID PRN muscle spasm #30 07/04/24 10/15/24 Rx tabs meloxicam 15 mg tablet 15 mg PO DAILY #30 tabs 07/04/24 10/15/24 Rx losartan 100 mg tablet See Rx Instructions .Route 10/03/24 10/15/24 Rx .COMPLEX #90 tabs chlorhexidine gluconate 4 % 1 applic topical ONCE #237 mL 10/08/24 10/15/24 Rx topical liquid (Hibiclens) Patient hx anesthesia problems: none Family hx anesthesia problems: none Results Review: All pre-operative results and documents have been reviewed as part of the pre- operative evaluation. 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 Okeefe History of tubal ligation 1993 Hx laparoscopic cholecystectomy 05/02/21 Laparoscopic Cholecystectomy with intraoperative cholangiogram S/P removal of right ovary 2016 History of knee surgery 2019 History of ankle surgery 2015 S/P lumpectomy of breast 2000 left breast H/O section 1990 Family History Family History Sibling Hypertension Father Hypertension Autonomic neuropathy due to disorder of immune function Sibling Hypertension Diabetes mellitus Mother Patient's mother is in good health Grandparent Malignant neoplasm of prostate Grandparent Cerebrovascular accident Uterine cancer Other Family history of arthritis Family history of malignant neoplasm Social History Social History Social History: caffeine daily Smoking packs per day: 1.5 Smoking cigarettes per day: 30.0 Years smoked: 10 Smoking pack-years: 15.00 Smoking status: Former smoker Tobacco type: cigarettes Second hand tobacco smoke exposure: No Smoking end date: 09/17/96 Additional smoking assessment comments: DENIES ANY FORM OF TOBACCO USE Alcohol intake: current Alcohol use details: RARE Substance use: never Substance use type: does not use Last use: 25 YRS AGO Do You Feel Safe in your Home?: Yes Lack of Transportation: No Lack of Food: Never True Current Housing: I Have Housing Concerned About Future Housing: No Difficulty Paying Gas/Electric Bills: No Difficulty Paying for Meds: No Currently Unemployed: No Education: Associate Degree Difficulty w/ Childcare or Family Care: No Living arrangements: with family Additional living arrangements comments: Occupation/Education: unemployed 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 Gender identity (if verbalized by the patient): Female Sexual Orientation (if Verbalized by the Patient): Straight or Heterosexual Spiritual care concerns: No Anes - Eval Final PreProcedure Day of Procedure 10/15/24 07:06 Patient weight: obese Heart: regular rate and rhythm Lungs: clear to auscultation Airway: Mallampati scale class II Neurological: alert and oriented Last oral intake: >/= 8 hours ASA classification: III Emergent: no Anesthetic plan: proceed Anesthesia type and monitoring: general LMA and standard monitoring Results Review: All pre-operative results and documents have been reviewed as part of the pre- operative evaluation. Informed Consent: The patient's anesthetic plan and its attendant risks and benefits were discussed with the patient/family/POA. Questions were solicited and answers provided to the satisfaction of the patient/family/POA.
[2024-10-15] MEDS: ACETAMINOPHEN 500 MG TABLET 1000 MG PO (07:07)
--- NOTE | 2024-10-15 07:09 | WPDHPUPDATE1 ---
History and Physical Update Update Date/Time: 10/15/24 07:09 History and Physical has been reviewed, including an updated exam of the patient. There are NO changes in the patient's condition. Risks, benefits, and alternatives have been discussed and questions answered. Patient agrees to proceed with procedure.
[2024-10-15] MEDS: TRANEXAMIC ACID 1,000MG/ISO100 1,000 MG/100 ML BAG 200 MG IVPB (07:25)
--- NOTE | 2024-10-15 07:32 | WPDANESPNB ---
Anes - Peripheral Nerve Block Date/Time: 10/15/24 07:32 I have discussed with the patient/family/POA the placement of a peripheral nerve block for post-operative pain management, including associated risks, benefits, complications, and side effects. Alternative methods of post-operative analgesia were detailed. Questions were solicited and answers provided to the satisfaction of the patient/family/POA. Time-Out: A pre-procedural Time-Out was completed immediately before starting the procedure and confirmed: Patient Identification, Site, Procedure, Patient Position and the Availability of Requisite Equipment. Clinical Indications: Acute post-operative pain management requested by the operative surgeon. Nerve Block Insertion Note Anes-nerve block: adductor canal right Patient position: supine Skin prep: chlorhexidine Needle: 22 gauge, stimulating, insulated echogenic needle. Needle length: 80 mm Technique: ultrasound Injectate: bupivacaine 0.5% with epi 5 mcg/ml (30cc - no epi) Observations: tolerated well Complications: none Procedure start time:: 724 Procedure end time:: 727
[2024-10-15] MEDS: ceFAZolin 2 GM/D5W 50 ML 2 GM/50 ML BAG IVPB ×3 (07:37→23:41)
[2024-10-15] MEDS: SODIUM CHLORIDE 0.9% IV 37.7 ML, MORPHINE SULFATE INJ (*CRX) 2 MG, ROPivacaine HCL 1% 2... INFILTRATE (08:33)
[2024-10-15] MEDS: TRANEXAMIC ACID 1,000 MG/10 ML AMPUL 1000 MG IV PUSH (09:26)
--- NOTE | 2024-10-15 10:18 | W.PM.PROC2 ---
Procedure Note - Detailed Date of Procedure 10/15/24 Pre-op Diagnosis Right Knee O A Post-op Diagnosis Same Procedure Performed R TKA Surgeon Elijah Okeefe MD Anesthesia General Description of Procedure THE RIGHT KNEE WAS PREPPED AND DRAPED IN THE STERILE FASHION. A MIDLINE SKIN INCISION WAS MADE. A MEDIAL PARAPATELLAR ARTHROTOMY WAS MADE. THE PATELLA WAS EVERTED. THERE WAS TRICOMPARTMENT DJD. AN INTRAMEDULLARY RAY WAS PLACED IN THE FEMUR. A DISTAL FEMORAL CUT WAS MADE IN 5 DEGREES OF VALGUS REMOVING APPROXIMATELY 8 MM OF BONE FROM THE DISTAL FEMUR. THE FEMUR WAS SIZED TO 4 A 4 FEMORAL CUTTING BLOCK WAS PLACED IN 3 DEGREES OF EXTERNAL ROTATION AND IN ALIGNMENT WITH MALIA'S LINE AND THE TRANSEPICONDYLAR AXIS. ANTERIOR POSTERIOR AND CHAMFER CUTS WERE MADE. THE CUTS WERE EXCELLENT. NEXT AN INTRAMEDULLARY CUTTING GUIDE WAS PLACED IN THE TIBIA. A TRANS TIBIAL CUT WAS MADE ALONG THE LONG AXIS OF THE TIBIA. APPROXIMATELY 6 MM OF BONE WAS REMOVED FROM THE HIGH SIDE OF THE TIBIA. THE TIBIA WAS THEN PLANED TO A SMOOTH SURFACE. POSTERIOR FEMORAL OSTEOPHYTES WERE REMOVED FROM THE FEMORAL CONDYLES. A 4 TIBIAL TRIAL WAS PLACED IN ALIGNMENT WITH THE 1/3 MEDIAL ASPECT OF THE TIBIAL TUBERCLE. THEN A 4 FEMORAL TRIAL COMPONENT WAS PLACED. BOTH HAD EXCELLENT FITS. EVENTUALLY A 9 MM CR POLYETHYLENE TRIAL COMPONENT WAS PLACED. THE KNEE WAS TAKEN THROUGH A RANGE OF MOTION. THE KNEE CAME OUT TO FULL EXTENSION. THERE WAS NO ABNORMAL TILT TO THE PATELLA. THERE WAS GOOD A/P AND VARUS/VALGUS STABILITY. THERE WAS NO EXCESSIVE ROLL BACK WITH FLEXION. THE TRIAL COMPONENTS WERE REMOVED. THEN A KAI 4 FEMORAL COMPONENT AND 4 TIBIAL COMPONENT WITH A 9 CR POLYETHYLENE COMPONENT WERE PRESS FIT INTO PLACE. THE KNEE WAS TAKEN THROUGH A ROM AGAIN AND FOUND TO BE STABLE WITH NO PATELLA TILT NO EXCESSIVE ROLL BACK WITH FLEXION AND GOOD STABILITY WITH COMPLETE AND FULL EXTENSION. THE KNEE WAS IRRIGATED WITH STERILE BETADINE AND WATER FOR ABOUT 3 MINUTES. THE BLEEDERS WERE CAUTERIZED. THE ARTHROTOMY WAS REPAIRED WITH NUMBER 1 VICRYL. THE SUB CUTANEOUS LAYER WITH 2-0 VICRYL, 3-0 STRATAFIX AND DERMABOND FOR THE SKIN. THE WOUND WAS WASHED AND A STERILE DRESSING WAS APPLIED. PATIENT WAS EXTUBATED. Estimated Blood Loss -150.0 Pathology None sent Complications No immediate complications Condition Stable Disposition PACU
[2024-10-15] MEDS: fentaNYL CITRATE INJ (*CRX) 100 MCG/2 ML VIAL 25 MCG IV PUSH ×4 (10:20→10:38)
[2024-10-15] MEDS: HYDROmorphone HCL INJ (*CRX) 1 MG/ML SYR 0.5 MG IV PUSH ×3 (10:50→11:13)
--- NOTE | 2024-10-15 11:40 | ADMGEN ---
This patient, Odalys Barnhart, was admitted to [facility] Surg Room 316-02. Patient/family oriented to hospital policies and general routines including ID bracelet, bed and alarms, visiting hours, pain management, procedures, bathroom and other care routines, personal items, smoking policy, room service/diet, and visiting hours. Information on how to activate the Rapid Response Team has been discussed. Patient/Family are encouraged to report perceived risks to care and to ask questions if they do not understand what they are told or what they should do.
[2024-10-15] MEDS: SENNA/DOCUSATE SODIUM TABLET 2 TAB PO ×2 (12:20→18:02)
[2024-10-15] MEDS: FAMOTIDINE 20 MG TABLET PO ×2 (12:20→21:15)
[2024-10-15] MEDS: LOSARTAN POTASSIUM 100 MG TABLET BY MOUTH (12:20)
[2024-10-15] MEDS: ASPIRIN 325 MG ENTERIC TABLET PO ×2 (12:20→21:15)
[2024-10-15] MEDS: KETOROLAC 15 MG/ML VIAL (*BKC) IV PUSH ×3 (12:21→23:41)
[2024-10-15] MEDS: oxyCODONE/ACETAMINOPHEN (*CRX) 5-325 MG TABLET 1 TABLET PO (12:21)
[2024-10-15] MEDS: polyethylene glycoL 3350 17 GM POWD.PACK PO (12:21)
[2024-10-15] MEDS: ONDANSETRON INJ 4 MG/2 ML VIAL IV PUSH ×2 (14:37→21:13)
[2024-10-16 01:19] VITALS: BP 115/63; PULSE 100; RESP 18; TEMP 36.7; O2SAT 100
[2024-10-16 05:19] VITALS: BP 128/78; PULSE 87; RESP 16; TEMP 37.1; O2SAT 100
[2024-10-16] MEDS: KETOROLAC 15 MG/ML VIAL (*BKC) IV PUSH ×2 (06:09→11:17)
[2024-10-16] MEDS: ONDANSETRON INJ 4 MG/2 ML VIAL IV PUSH (06:23)
[2024-10-16 07:42] LABS: Basophils Percent Auto 0.4 % (0.2-1.2); Eosinophils Percent Auto 0.4 % (0-4.4); Hematocrit 36.9 % (37.0-47.0); Hemoglobin 12.1 g/dL (12.0-15.0); Immature Granulocyte Absolute 0.05 K/mm3 (0.00-0.031); Immature Granulocyte Percent A 0.6 % (0-0.5); Lymphocytes Absolute Auto 2.09 K/mm3 (0.9-3.2); Lymphocytes Percent Auto 23.1 % (18.3-44.2); Mean Corpuscular HGB Conc 32.8 g/dl (32-36); Mean Corpuscular Hemoglobin 30.9 pg (26-34); Mean Corpuscular Volume 94.1 fl (80-100); Mean Platelet Volume 10.7 fl (7.4-10.4); Monocytes Absolute Auto 1.1 K/mm3 (0.1-0.6); Monocytes Percent Auto 11.6 % (2.6-8.5); Neutrophils Absolute Auto 5.8 K/mm3 (1.3-6.7); Neutrophils Percent Auto 63.9 % (45.5-73.1); Platelet Count Result 182 k/mm3 (150-375); Red Blood Count 3.92 M/mm3 (4.2-5.4)
[2024-10-16 08:06] LABS: Anion Gap 6 mmol/L (4-12); Blood Urea Nitrogen 9 mg/dL (7-17); Calcium 8.6 mg/dL (8.4-10.2); Carbon Dioxide 28 mmol/L (22-30); Chloride 105 mmol/L (98-107); Estimated CRCL calculation 99 ml/min; Estimated Glomerular Filt Rate > 60; Glucose 114 mg/dL (65-110); Sodium 139 mmol/L (137-145)
[2024-10-16] MEDS: ASPIRIN 325 MG ENTERIC TABLET PO (08:57)
[2024-10-16] MEDS: polyethylene glycoL 3350 17 GM POWD.PACK PO (08:57)
[2024-10-16] MEDS: SENNA/DOCUSATE SODIUM TABLET 2 TAB PO (08:57)
[2024-10-16] MEDS: ceFAZolin 2 GM/D5W 50 ML 2 GM/50 ML BAG IVPB (08:57)
[2024-10-16] MEDS: LOSARTAN POTASSIUM 100 MG TABLET BY MOUTH (08:58)
[2024-10-16] MEDS: FAMOTIDINE 20 MG TABLET PO (08:58)
--- NOTE | 2024-10-16 09:52 | PM.PNORT ---
Progress Note: A&P Assessment and Plan (1) S/P total knee arthroplasty: Qualifiers: Laterality: right Qualified Code(s): Z96.651 - Presence of right artificial knee joint Code(s): Z96.659 - Presence of unspecified artificial knee joint Status: Acute Assessment and Plan: POD #1 : Right TKA Continue PT/OT. WBAT. Walker. HIGH FALL RISK. Continue pain control. Ice Knee. Protect skin. DVT prophylaxis with Aspirin. SCDs. Incentive Spirometry Use reviewed. Monitor Dressing. Change prior to discharge. Bowel Regimen. Dispo: Home with Home Health pending progress with PT/OT Plan Reviewed history, exam, radiographs and current labs with attending MD and covering surgeon, Dr. Okeefe, who agrees with current plan as indicated above. No further recommendations from Dr. Okeefe at this time. Subjective Subjective Date/Time Seen: 10/16/24 09:52 Post Op day: 1 Interval history: POD #1: Right TKA Patient doing well. Pain well controlled. No new concerns, hopeful for d/c home today. Review of Systems Review of Systems: All systems reviewed & are unremarkable except as noted in HPI and below Constitutional: Constitutional: Denies fever(s) and Denies headache(s) ENT: Denies headache(s) Cardiovascular: Cardiovascular: Denies chest pain, Denies diaphoresis, Denies palpitations and Denies dyspnea Respiratory: Respiratory: Denies dyspnea Gastrointestinal: Gastrointestinal: Denies abdominal pain, Denies constipation, Denies nausea and Denies vomiting Genitourinary: Genitourinary: Reports nocturia and Denies dysuria Musculoskeletal: Musculoskeletal: Reports arthralgias (Right Knee ) and Reports joint swelling (Right Knee ) Neurologic: Denies headache(s) Endocrine: Endocrine: Denies palpitations Exam Const: General: comfortable and no acute distress Resp: Effort & Inspection: normal respiratory effort Cardio: Rate: regular rate Rhythm: regular rhythm GI: GI Palp: Yes Soft to palpation, No Tenderness to palpation present (GI) and No Guarding due to palpation present (GI) Skin: General skin exam: wounds noted Wounds: wounds noted Other: Incision c/d/i. No surrounding redness/warmth. No hematoma. Mild ecchymosis. No wound dehiscence Neuro: Cognition (Neuro): normal cognition Other: NV intact aside from block. Moves toes. Sensation intact to light touch. +ankle dorsiflexion/plantarflexion. Extrem: Right lower extremity: normal to inspection, knee Details: tenderness (diffuse, mild ) Location: of the patella, swelling (diffuse, consistent with surgical intervention ), abnormal ROM Details: pain with active ROM during, pain with passive ROM during and with range as follows (limited due to recent surgical intervention ); able to extend lower leg actively and ecchymosis (mild ), lower leg (Negative Tal's Sign ) Details: normal to inspection; no erythema and no tenderness, ankle (+ankle dorsiflexion/plantarflexion ) Details: normal to inspection, no edema and normal ROM; no tenderness, no swelling and no ecchymosis and foot Details: normal capillary refill, normal to inspection, vascular exam Details: dorsalis pedis pulse present and motor-sensory exam Details: light-touch normal; no tenderness Left lower extremity: normal to inspection Psych: Mental Status: mental status grossly normal Objective Data Vital Signs Vital Signs: Vital Signs - 24 hr 10/15/24 10:16 10/15/24 10:30 10/15/24 10:45 Temperature 36.9 C Pulse Rate 90 88 88 Respiratory Rate 16 12 15 Blood Pressure 152/81 H 159/85 H 166/95 H Pulse Oximetry 100 100 100 Oxygen Delivery Simple Face Mask Simple Face Mask Simple Face Mask Oxygen Flow Rate 8 8 8 10/15/24 11:00 10/15/24 11:15 10/15/24 11:30 Temperature Pulse Rate 89 94 82 Respiratory Rate 15 14 10 L Blood Pressure 153/77 H 155/82 H 157/74 H Pulse Oximetry 96 98 98 Oxygen Delivery Room Air Room Air Room Air Oxygen Flow Rate 10/15/24 11:49 10/15/24 12:20 10/15/24 13:19 Temperature 35.9 C L 35.7 C L Pulse Rate 92 94 Respiratory Rate 11 L 11 L Blood Pressure 155/77 H 146/86 H Pulse Oximetry 98 96 Oxygen Delivery Room Air Oxygen Flow Rate 10/15/24 14:33 10/15/24 14:37 10/15/24 17:19 Temperature 36.5 C Pulse Rate 97 Respiratory Rate 12 Blood Pressure 143/79 H Pulse Oximetry 97 100 Oxygen Delivery Room Air Room Air Oxygen Flow Rate 10/15/24 20:00 10/15/24 21:19 10/16/24 01:19 Temperature 36.7 C 36.7 C Pulse Rate 82 100 Respiratory Rate 16 18 Blood Pressure 122/72 115/63 Pulse Oximetry 93 100 Oxygen Delivery Room Air Oxygen Flow Rate 10/16/24 05:19 Temperature 37.1 C Pulse Rate 87 Respiratory Rate 16 Blood Pressure 128/78 Pulse Oximetry 100 Oxygen Delivery Oxygen Flow Rate Intake/Output Intake/Output: Intake & Output 10/13/24 10/14/24 10/15/24 10/16/24 23:59 23:59 23:59 23:59 Intake Total 1140 790 Balance 1140 790 Meds/Results Medications: Active Medications Generic Name Dose Route Start Last Admin Trade Name Freq PRN Reason Stop Dose Admin Acetaminophen 500 mg 10/15/24 11:34 Acetaminophen 500 Mg Tablet PO Q6H PRN Pain Rated 1-3 Aspirin 325 mg 10/15/24 11:34 10/16/24 08:57 Aspirin 325 Mg Enteric Tablet PO 325 mg Q12HR KIMBERLI Administration Diazepam 5 mg 10/15/24 11:34 Diazepam (*Crx) 5 Mg Tablet PO Q8H PRN Spasms Diphenhydramine HCl 25 mg 10/15/24 11:34 Diphenhydramine Hcl Inj 50 Mg/Ml Vial IV PUSH Q6H PRN Itching Famotidine 20 mg 10/15/24 11:34 10/16/24 08:58 Famotidine 20 Mg Tablet PO 20 mg Q12HR KIMBERLI Administration Hydromorphone HCl 1 mg 10/15/24 11:34 Hydromorphone Hcl Inj (*Crx) 1 Mg/Ml Syr IV PUSH Q2H PRN Breakthrough Pain Rated 7-10 or NPO Hydromorphone HCl 0.5 mg 10/15/24 11:34 Hydromorphone Hcl Inj (*Crx) 1 Mg/Ml Syr IV PUSH Q2H PRN Breakthrough Pain Rated 4-6 or NPO Ibuprofen 800 mg in 200 mls @ 400 mls/hr 10/15/24 11:34 Caldolor 800 Mg/200 Ml IVPB Q6H PRN Breakthrough Pain Rated 1-3 or NPO Ketorolac Tromethamine 15 mg 10/15/24 12:00 10/16/24 06:09 Ketorolac 15 Mg/Ml Vial (*Bkc) IV PUSH 10/16/24 12:01 15 mg Q6HR KIMBERLI Administration Losartan Potassium 100 mg 10/15/24 11:34 10/16/24 08:58 Losartan Potassium 100 Mg Tablet BY MOUTH 100 mg DAILY KIMBERLI Administration Naloxone HCl 0.1 mg 10/15/24 11:34 Naloxone Hcl 0.4 Mg/Ml Vial IV PUSH Q2M PRN Opiate Reversal Ondansetron HCl 4 mg 10/15/24 11:34 10/16/24 06:23 Ondansetron Inj 4 Mg/2 Ml Vial IV PUSH 4 mg Q4H PRN Administration Nausea And Vomiting Oxycodone/Acetaminophen 1 tablet 10/15/24 11:34 10/15/24 12:21 Oxycodone/Acetaminophen (*Crx) 5-325 Mg Tablet PO 1 tablet Q4H PRN Administration Pain Rated 4-6 Oxycodone/Acetaminophen 1 tab 10/15/24 11:34 Oxycodone/Acetaminophen (*Crx) 10-325 Mg Tablet PO Q6H PRN Pain Rated 7-10 Polyethylene Glycol 17 gm 10/15/24 11:34 10/16/24 08:57 Polyethylene Glycol 3350 17 Gm Powd.Pack PO 17 gm QAM KIMBERLI Administration Senna/Docusate Sodium 2 tab 10/15/24 11:34 10/16/24 08:57 Senna/Docusate Sodium Tablet PO 2 tab BID KIMBERLI Administration Radiology Results: ITS Impressions Knee X-Ray 10/15/24 11:10 IMPRESSION: Expected appearance of perioperative right total knee arthroplasty, as detailed above. Labs Labs: Laboratory Results - last 24 hr 10/16/24 07:10 WBC 9.0 RBC 3.92 L Hgb 12.1 Hct 36.9 L MCV 94.1 MCH 30.9 MCHC 32.8 RDW 13.0 Plt Count 182 MPV 10.7 H Immature Gran % (Auto) 0.6 H Neut % (Auto) 63.9 Lymph % (Auto) 23.1 [place] % (Auto) 11.6 H Eos % (Auto) 0.4 Baso % (Auto) 0.4 Lymph # (Auto) 2.09 [place] # (Auto) 1.1 H Eos # (Auto) 0.0 Baso # (Auto) 0.0 Abs Immat Gran (auto) 0.05 H Absolute Neuts (auto) 5.8 Absolute Nucleated RBC 0.000 Nucleated RBC % 0.0 Sodium 139 Potassium 4.0 Chloride 105 Carbon Dioxide 28 Anion Gap 6 BUN 9 Creatinine 0.72 Estim Creat Clear Calc 99 Estimated GFR > 60 Glucose 114 H Calcium 8.6 Quality VTE Prophylaxis VTE prophylaxis: pharmacologic ordered
[2024-10-16] MEDS: oxyCODONE/ACETAMINOPHEN (*CRX) 10-325 MG TABLET 1 TAB PO (11:18)
--- NOTE | 2024-10-16 13:23 | WPDANESPN ---
Anes - Prog Note Post-Op Date/Time: 10/16/24 13:23 Vital Signs: Last Vital Signs Temp 37.1 C 10/16/24 05:19 Pulse 87 10/16/24 05:19 Resp 16 10/16/24 05:19 BP 128/78 10/16/24 05:19 Pulse Ox 100 10/16/24 05:19 O2 Del Method Room Air 10/15/24 20:00 O2 Flow Rate 8 10/15/24 10:45 Pain Score (VAS): 4 I/O: Intake & Output 10/15/24 10/16/24 10/16/24 23:59 07:59 15:59 Intake Total 135 75 3709 Balance 857 61 1642 Laboratory Tests 10/16/24 07:10 10/16/24 07:10 10/16/24 07:10 WBC 9.0 RBC 3.92 L Hgb 12.1 Hct 36.9 L MCV 94.1 MCH 30.9 MCHC 32.8 RDW 13.0 Plt Count 182 MPV 10.7 H Immature Gran % (Auto) 0.6 H Neut % (Auto) 63.9 Lymph % (Auto) 23.1 [place] % (Auto) 11.6 H Eos % (Auto) 0.4 Baso % (Auto) 0.4 Lymph # (Auto) 2.09 [place] # (Auto) 1.1 H Eos # (Auto) 0.0 Baso # (Auto) 0.0 Abs Immat Gran (auto) 0.05 H Absolute Neuts (auto) 5.8 Absolute Nucleated RBC 0.000 Nucleated RBC % 0.0 Sodium 139 Potassium 4.0 Chloride 105 Carbon Dioxide 28 Anion Gap 6 BUN 9 Creatinine 0.72 Estim Creat Clear Calc 99 Estimated GFR > 60 Glucose 114 H Calcium 8.6 Patient Feedback: Patient satisfied with anesthetic care.
--- NOTE | 2024-10-16 13:42 | PCPTNOTE ---
On 10/16/24, the student, RUI Rodríguez, provided care and completed [facility] documentation on this patient. I have reviewed the student's documentation and agree with the findings.
== END 2024-10-16 14:00 | disposition home health service (06) ==
LOC: ANHSURGERY 06:02 → ANH3MEDSUR 11:26
PROVIDERS: PCP Internal Medicine; Visit Provider Orthopaedic Surgery
PROC: (CPT 27447; principal; 2024-10-15 07:30)
DX: M17.11 Unilateral primary osteoarthritis, right knee (principal); G89.18 Other acute postprocedural pain; Z87.891 Personal history of nicotine dependence; E66.9 Obesity, unspecified; Z68.37 Body mass index [BMI] 37.0-37.9, adult
CPT/HCPCS: 27447; 64447; 36415; 73560; 80048; 85025; 86850; 86900; 86901; 97110; 97116; 97161; 97165; 97530; 97535; A9270; C1713; C1776; J0171; J0690; J1100; J1171; J1885; J2250; J2270; J2405; J2704; J2795; J3010; J3370; J7120

== ENCOUNTER 2024-12-18 12:12 | Outpatient (CLI) | payer BC, SELFPAY ==
--- NOTE | ~2024-12-18 | MM_ITS ---
EXAMINATION: MM screening rod BI w veena HISTORY: Screening TECHNIQUE: Craniocaudal and mediolateral oblique 3-D tomosynthesis images were obtained and synthetic 2-D images were generated. CAD analysis was submitted and interpreted. COMPARISON: Comparison to multiple prior studies sequentially, with oldest reviewed study dated 06/18. BREAST PARENCHYMAL COMPOSITION: Not dense: There are scattered areas of fibroglandular density. FINDINGS: There is no evidence of suspicious mass, calcification, or architectural distortion to sugg est malignancy in either breast. There has been no suspicious interval change. IMPRESSION: 1. No mammographic evidence of malignancy. 2. Recommend routine screening mammography in one year. BI-RADS Category 1: Negative Reviewed, dictated and finalized at location A.
== END 2024-12-18 12:13 | disposition home or self-care (01) ==
LOC: MICIMG 12:13
PROVIDERS: PCP Internal Medicine; Visit Provider Obstetrics & Gynecology
DX: Z12.31 Encounter for screening mammogram for malignant neoplasm of breast (principal)
CPT/HCPCS: 77063; 77067

== ENCOUNTER 2025-06-03 08:09 | Outpatient (CLI) | payer BC, SELFPAY ==
[2025-06-03 14:09] LABS: Hematocrit 45.0 % (37.0-47.0); Hemoglobin 14.4 g/dL (12.0-15.0); Immature Granulocyte Percent A 0.2 % (0-0.5); Lymphocytes Absolute Auto 1.72 K/mm3 (0.9-3.2); Mean Corpuscular HGB Conc 32.0 g/dl (32-36); Mean Corpuscular Hemoglobin 30.6 pg (26-34); Mean Corpuscular Volume 95.7 fl (80-100); Nucleated Red Blood Cells Absolute Auto 0.000 K/mm3 (0.0-0.012); Nucleated Red Blood Cells Perc 0.0 % (0.0-0.2); Platelet Count Result 212 k/mm3 (150-375); Red Blood Count 4.70 M/mm3 (4.2-5.4); White Blood Count 4.8 K/mm3 (4.5-10.0)
[2025-06-03 15:26] LABS: Alanine Aminotransferase 20 U/L (6-35); Albumin Level 3.9 g/dL (3.5-5.1); Alkaline Phosphatase 86 U/L (38-126); Anion Gap 4 mmol/L (4-12); Aspartate Amino Transferase 26 U/L (14-36); Bilirubin,Total 0.4 mg/dL (0.2-1.3); Blood Urea Nitrogen 9 mg/dL (7-17); Calcium 9.3 mg/dL (8.4-10.2); Carbon Dioxide 31 mmol/L (22-30); Chloride 105 mmol/L (98-107); Cholesterol 165 mg/dL (0-200); Estimated Glomerular Filt Rate > 60; Glucose 92 mg/dL (65-110); HDL Direct 42 mg/dL; Potassium 5.3 mmol/L (3.4-5.0); Sodium 140 mmol/L (137-145); Total Protein 7.2 g/dL (6.3-8.2); Triglycerides 136 mg/dL (<150)
[2025-06-03 16:02] LABS: Thyroid Stimulating Hormone 1.330 uIU/mL (0.465-4.680)
[2025-06-03 16:54] LABS: Hemoglobin A1C 5.5 % (<5.7)
== END 2025-06-03 08:10 | disposition home or self-care (01) ==
LOC: ANHGOSHLAB 08:10
PROVIDERS: PCP Internal Medicine; Visit Provider Nurse Practitioner
DX: R73.03 Prediabetes (principal); I10 Essential (primary) hypertension; E55.9 Vitamin D deficiency, unspecified; F32.A Depression, unspecified
CPT/HCPCS: 36415; 80053; 80061; 82306; 83036; 84443; 85025

== ENCOUNTER 2025-06-08 06:55 | Outpatient (CLI) | payer BC, SELFPAY ==
--- NOTE | ~2025-06-08 | MR_ITS ---
EXAMINATION: MR cervical spine wo con DATE: 06/08/2025 07:24 INDICATION: Neck pain. Cervical radiculopathy. TECHNIQUE: Magnetic resonance imaging (MRI) of the cervical spine was performed without intravenous contrast. COMPARISON: MRI 10/01/2022 FINDINGS: There is hypolordosis of cervical spine. Vertebral body heights are normal. Intervertebral disc heights are normal. There are bridging anterior osteophytes from C2 to T1, consistent with diffuse idiopathic skeletal hyperostosis (DISH). The spinal cord signal intensity is normal. The following disc levels are specifically discussed: C2-C3: The disc does not extend beyond the endplate margin. There is no uncovertebral joint osteoarthritis. There is severe right and moderate left facet joint osteoarthritis. There is mild right neural foraminal stenosis. There is no central canal stenosis. C3-C4: There is a central protrusion. There is mild left uncovertebral joint osteoarthritis. There is mild bilateral facet joint osteoarthritis. There is no neural foraminal stenosis. There is no central canal stenosis. C4-C5: The disc does not extend beyond the endplate margin. There is no uncovertebral joint osteoarthritis. There is no facet joint osteoarthritis. There is no neural foraminal stenosis. There is no central canal stenosis. C5-C6: There is a central extrusion. There is mild bilateral uncovertebral joint osteoarthritis. There is no facet joint osteoarthritis. There is mild left neural foraminal stenosis. There is mild central canal stenosis. C6-C7: There is a central protrusion. There is mild bilateral uncovertebral joint osteoarthritis. There is mild left facet joint osteoarthritis. There is mild left neural foraminal stenosis. There is mild central canal stenosis. C7-T1: The disc does not extend beyond the endplate margin. There is no uncovertebral joint osteoarthritis. There is mild bilateral facet joint osteoarthritis. There is mild left neural foraminal stenosis. There is no central canal stenosis. IMPRESSION: 1. Mild cervical spondylosis, stable from 10/01/2022. 2. DISH. Reviewed, dictated and finalized at location E.
== END 2025-06-08 06:56 | disposition home or self-care (01) ==
LOC: MICIMG 06:56
PROVIDERS: PCP Internal Medicine; Visit Provider Nurse Practitioner Family
DX: M47.22 Other spondylosis with radiculopathy, cervical region (principal); M48.12 Ankylosing hyperostosis [Forestier], cervical region
CPT/HCPCS: 72141

== ENCOUNTER 2025-06-15 08:08 | Outpatient (CLI) | payer BC, SELFPAY ==
[2025-06-15 13:04] LABS: Potassium 4.1 mmol/L (3.4-5.0)
== END 2025-06-15 08:09 | disposition home or self-care (01) ==
LOC: ANHGOSHLAB 08:09
PROVIDERS: PCP Internal Medicine; Visit Provider Nurse Practitioner
DX: E87.5 Hyperkalemia (principal)
CPT/HCPCS: 36415; 84132

== ENCOUNTER 2025-07-09 14:39 | Outpatient (CLI) | payer MEDICARE, SELFPAY ==
--- NOTE | 2025-07-09 14:51 | ECG_ITS ---
Test Date: 2025-07-09 14:56:55 Measurements Intervals [place] Rate: 82 P: 64 OH: 167 QRS: 44 QRSD: 133 T: 27 QT: 383 QTc: 448 Interpretive Statements SINUS RHYTHM RIGHT BUNDLE BRANCH BLOCK MINIMAL Q WAVES- INFERIOR LEADS ABNORMAL ECG Compared to ECG 07/24/2024 11:24:03 Right bundle-branch block now present Electronically Signed On 07-09-2025 15:32:55 CDT by Jp Wolf D.O.
[2025-07-09 15:16] LABS: Add Urine Microscopic? YES; Appearance Urine Clear (Clear); Glucose Urine UA Negative (Negative); Leukocyte Esterase Ur Trace LEU/UL (Negative); Nitrate Urine Negative (Negative); Non Pathogenic Casts 0-2; Specific Grav Ur 1.011 (1.001-1.035)
== END 2025-07-09 14:40 | disposition home or self-care (01) ==
PROVIDERS: PCP Internal Medicine; Visit Provider Orthopaedic Surgery
DX: I10 Essential (primary) hypertension (principal); R53.83 Other fatigue; I45.10 Unspecified right bundle-branch block
CPT/HCPCS: 81001; 93005

== ENCOUNTER 2025-08-05 07:21 | Outpatient (CLI) | payer MEDICARE, SELFPAY ==
--- NOTE | 2025-08-05 07:40 | ECHO_ITS ---
Patient Info Name: Odalys Barnhart Age: 60 years : 1965 Gender: Female Ht: 69 in Wt: 255 lbs BSA: 2.42 m2 HR: 71 bpm BP: 160 / 99 mmHg Heart Rhythm: Sinus Rhythm Technical Quality: Fair Exam Date: 08/05/2025 7:45 AM Patient Status: O Admit Date: 08/05/2025 Exam Type: CA echo doppler color flow Complete two-dimensional, color flow and Doppler transthoracic echocardiogram is performed. Sample Puller: Yanet Ashley Attending Provider: Herminia Ventura Summary 1. Complete two-dimensional, color flow and Doppler transthoracic echocardiogram is performed. 2. Left ventricular chamber dimension is normal. 3. Left ventricular systolic function is normal, estimated at 60-65. 4. The left ventricular diastolic function is abnormal. 5. E/e' 14 is mildly elevated. Left Ventricle E/e' 14 is mildly elevated. Left ventricular chamber dimension is normal. Left ventricular systolic function is normal, estimated at 60-65. The left ventricular diastolic function is abnormal. Right Ventricle Right ventricular chamber dimension is normal. Right ventricular systolic function is normal and with normal TAPSE 2.2 cm. Left Atria Left atrial chamber dimension is normal. Right Atria Right atrial chamber dimension is normal. Aortic Valve The aortic valve is trileaflet. There is no aortic valve stenosis. There is no aortic valve regurgitation. Pulmonic Valve There is no pulmonic regurgitation. Mitral Valve There is no mitral valve stenosis. There is no mitral valve regurgitation. Tricuspid Valve There is no tricuspid valve regurgitation. Pericardium/Pleural There is no pericardial effusion. Inferior Vena Cava Normal inferior vena cava with >50% collapse upon inspiration consistent with normal right atrial pressure, 5 mmHg. Aorta The aortic root size at the sinus of Valsalva is normal. Left Ventricular Outflow Tract Name Value Normal LVOT 2D LVOT Diameter 2.0 cm LVOT Doppler LVOT Peak Velocity 94 cm/s LVOT Peak Gradient 4 mmHg LVOT Mean Gradient 2 mmHg LVOT VTI 22 cm LVOT VTI/AV VTI Ratio 0.7 LVOT Stroke Volume 65 ml LVOT CO 4.3 l/min LVOT CI 1.8 l/min/m2 Pulmonic Valve Name Value Normal RVOT Doppler RVOT Peak Velocity 79 cm/s RVOT Peak Gradient 2 mmHg PV Doppler PV Peak Velocity 86 cm/s PV Peak Gradient 3 mmHg Mitral Valve Name Value Normal MV Diastolic Function MV E Peak Velocity 111 cm/s MV A Peak Velocity 82 cm/s MV E/A 1.4 MV Decel Time (PW) 233 ms MV Annular TDI MV E/e' (Septal) 16.1 MV E/e' (Lateral) 13.6 MV E/e' (Average) 14.8 Tricuspid Valve Name Value Normal Estimated PAP/RSVP RA Pressure 5 mmHg <=5 TV Annular TDI TV Lateral Marilee s' Velocity 11.4 cm/s >=9.5 Aorta Name Value Normal Ascending Aorta Ao Root Diameter (MM) 3.4 cm Ao Root Diam Index (MM) 1.4 cm/m2 Aortic Valve Name Value Normal AV Doppler AV Peak Velocity 141 cm/s AV Peak Gradient 8 mmHg AV Mean Gradient 4 mmHg AV VTI 29 cm AV Area (Cont Eq VTI) 2.2 cm2 >=3.0 AV Area (Cont Eq Yury) 2.0 cm2 AV DI (Yury) 0.67 AV Regurgitation 2D LVOT Area 3.0 cm2 Ventricles Name Value Normal LV Dimensions 2D/MM IVS Diastolic Thickness (2D) 1.0 cm 0.6-1.0 LVID Diastole (2D) 4.3 cm 3.8-5.2 LVIW Diastolic Thickness (2D) 1.0 cm 0.6-0.9 LVID Systole (2D) 2.8 cm 2.2-3.5 LVOT Diameter 2.0 cm LV Mass (2D Cubed) 140.99 g 67.00-162.00 LV Mass Index (2D Cubed) 58 g/m2 43-95 Relative Wall Thickness (2D) 0.46 <=0.42 LV Fractional Shortening/Ejection Fraction 2D/MM LV Fractional Shortening (2D) 35 % 27-45 LV EF (2D Teichholz) 64 % LV Diastolic Volume (4C MOD) 77 ml LV EF (4C MOD) 67 % LV Diastolic Volume (2C MOD) 40 ml LV EF (2C MOD) 60 % LV Diastolic Volume (BP MOD) 57 ml 46-106 LV Diastolic Volume Index (BP MOD) 24 ml/m2 29-61 LV Systolic Volume (BP MOD) 21 ml 14-42 LV Systolic Volume Index (BP MOD) 9 ml/m2 8-24 LV EF (BP MOD) 62 % 54-74 LV Diastolic Length (4C) 7.7 cm LV Systolic Length (4C) 6.5 cm LV Stroke Volume (4C MOD) 51 ml Atria Name Value Normal LA Dimensions LA Dimension (MM) 3.9 cm 2.7-3.8 LA Volume (4C A-L) 40 ml LA Volume (BP A-L) 45 ml RA Dimensions RA Area (4C) 13.9 cm2 <=18.0 Report Signatures
--- NOTE | 2025-08-05 07:40 | EST_ITS ---
Patient Info Name: Odalys Barnhart Age: 60 years : 1965 Gender: Female Ht: 69 in Wt: 255 lbs BSA: 2.42 m2 HR: 66 bpm BP: 133 / 85 mmHg Exam Date: 08/05/2025 7:40 AM Patient Status: O Admit Date: 08/05/2025 Exam Type: CA stress test treadmill A treadmill exercise stress test was performed. Staff Attending Provider: Herminia Ventura Exercise Technologist: Jenny Gold Exercise Physician: Jp Wolf DO Summary 1. 1. Negative Emmanuel exercise stress test for ischemic ST changes by ECG criteria. 2. 2. Reduced functional capacity, achieving 7 METs of workload. 3. 3. Appropriate HR response to exercise. 4. 4. Appropriate HR recovery at 1 minute post exercise. 5. 5. No imaging with stress testing. 6. 6. Patient informed of the above results. Protocol: Emmanuel Stress ECG Details Stage: REST Duration (min): 0 min : 53 sec Speed (mph): 0.0 Grade (%): 0 HR (bpm): 67 SBP (mmHg): 133 DBP (mmHg): 85 METS: --- Stage: REST Duration (min): 9 min : 54 sec Speed (mph): 0.0 Grade (%): 0 HR (bpm): 92 SBP (mmHg): 133 DBP (mmHg): 85 METS: --- Stage: STAGE 1 Duration (min): 1 min : 0 sec Speed (mph): 1.7 Grade (%): 10 HR (bpm): 111 SBP (mmHg): 133 DBP (mmHg): 85 METS: --- Stage: STAGE 1 Duration (min): 2 min : 0 sec Speed (mph): 1.7 Grade (%): 10 HR (bpm): 125 SBP (mmHg): 133 DBP (mmHg): 85 METS: --- Stage: STAGE 1 Duration (min): 3 min : 0 sec Speed (mph): 1.7 Grade (%): 10 HR (bpm): 130 SBP (mmHg): 154 DBP (mmHg): 75 METS: --- Stage: STAGE 2 Duration (min): 1 min : 0 sec Speed (mph): 2.5 Grade (%): 12 HR (bpm): 144 SBP (mmHg): 154 DBP (mmHg): 75 METS: --- Stage: STAGE 2 Duration (min): 1 min : 30 sec Speed (mph): 2.5 Grade (%): 12 HR (bpm): 133 SBP (mmHg): 154 DBP (mmHg): 75 METS: --- Stage: RECOVERY Duration (min): 0 min : 29 sec Speed (mph): 0.0 Grade (%): 0 HR (bpm): 84 SBP (mmHg): 168 DBP (mmHg): 80 METS: --- Stage: RECOVERY Duration (min): 1 min : 29 sec Speed (mph): 0.0 Grade (%): 0 HR (bpm): 135 SBP (mmHg): 168 DBP (mmHg): 80 METS: --- Stage: RECOVERY Duration (min): 2 min : 29 sec Speed (mph): 0.0 Grade (%): 0 HR (bpm): 134 SBP (mmHg): 168 DBP (mmHg): 80 METS: --- Stage: RECOVERY Duration (min): 3 min : 29 sec Speed (mph): 0.0 Grade (%): 0 HR (bpm): 118 SBP (mmHg): 143 DBP (mmHg): 97 METS: --- Stage: RECOVERY Duration (min): 4 min : 29 sec Speed (mph): 0.0 Grade (%): 0 HR (bpm): 104 SBP (mmHg): 143 DBP (mmHg): 97 METS: --- Stage: RECOVERY Duration (min): 5 min : 29 sec Speed (mph): 0.0 Grade (%): 0 HR (bpm): 103 SBP (mmHg): 137 DBP (mmHg): 94 METS: --- Stage: RECOVERY Duration (min): 6 min : 29 sec Speed (mph): 0.0 Grade (%): 0 HR (bpm): 97 SBP (mmHg): 137 DBP (mmHg): 94 METS: --- Stage: RECOVERY Duration (min): 6 min : 53 sec Speed (mph): 0.0 Grade (%): 0 HR (bpm): 96 SBP (mmHg): 118 DBP (mmHg): 90 METS: --- Rest HR: 92 bpm Peak HR: 187 bpm Rest Sys BP: 133 mmHg Peak Sys BP: 168 mmHg Max Pred HR: 161 bpm % Max Pred HR: 116 % Target HR: 137 bpm Max RPP: 31,416 bpm*mmHg Preston Score: -3 Termination Reason: Reached target heart rate or workload Cardiac Symptoms: Shortness of breath Max ST Seg Deviation: 1.50 mm Total Time: 4 min : 30 sec Rest [place] BP: 85 mmHg Peak [place] BP: 80 mmHg Angina Score: None Total METS: 7.1 Resting ECG Sinus rhythm. Stress ECG No ST changes. Arrhythmias None. Report Signatures
== END 2025-08-05 07:22 | disposition home or self-care (01) ==
LOC: ANHCARD 07:23
PROVIDERS: PCP Nurse Practitioner; Visit Provider Nurse Practitioner
DX: R93.1 Abnormal findings on diagnostic imaging of heart and coronary circulation (principal); I45.10 Unspecified right bundle-branch block
CPT/HCPCS: 93017; 93306